=== PATIENT | male | born 1955 | race Caucasian/White ===

== ENCOUNTER 2018-08-09 09:39 | Observation (INO) | payer BC ==
[~2018-08-09] VITALS: Ht 177.8 cm; Wt 65.6 kg
[~2018-08-09 09:39] MED LIST: ALEVE 220MG220 MG PO; RT SPIRIVA18 MCG IH
[2018-08-09 10:06] LABS: BASO # 0.1 (0.0-0.2); BASO % 0.9 % (0.0-2.0); EOS # 0.3 (0.0-0.7); EOS % 3.1 % (0-4.0); GRAN # 5.8 (1.4-6.5); GRAN % 65.8 % (42.2-75.2); HEMATOCRIT 45.6 % (42.0-52.0); HEMOGLOBIN 15.1 g/dl (13.5-18.0); LYMPH # 1.9 (1.2-3.4); MEAN CELL VOLUME 95 fl (80.0-100.0); MEAN CORPUSCULAR HEMOGLOBIN 32 pg (27.0-31.0); MEAN CORPUSCULAR HGB CONC 33 g/dl (33.0-37.0); MEAN PLATELET VOLUME 8.7 fl (7.4-10.4); MONO # 0.7 (0.1-0.6); MONO % 7.7 % (1.7-9.3); PLATELET COUNT 303 K/mm3 (130-400); RED BLOOD COUNT 4.79 M/mm3 (4.20-5.60); REDCELL DISTRIBUTION WIDTH-CV 13.2 % (11.5-14.5)
[2018-08-09 10:13] LABS: INR 1.1 (0.8-3.0); PROTHROMBIN TIME 12.2 SECONDS (9.7-12.8)
[2018-08-09 10:15] LABS: PARTIAL THROMBOPLASTIN TIME 31.8 SECONDS (26.0-37.0)
[2018-08-09 10:17] LABS: ALANINE AMINOTRANSFERASE 21 U/L (21-72); ALBUMIN 4.1 gm/dL (3.5-5.0); ALKALINE PHOSPHATASE 96 U/L (50-136); ANION GAP 9 mmol/L (7-16); AST,SGOT 19 U/L (15-37); BILIRUBIN,TOTAL 0.6 mg/dL (0.0-1.0); BLOOD UREA NITROGEN 15 mg/dL (9-20); CALCIUM 9.3 mg/dL (8.4-10.2); CARBON DIOXIDE 25 mmol/L (22-30); CHLORIDE 102 mmol/L (98-107); CREATININE, serum 0.99 mg/dL (0.66-1.25); GLUCOSE 113 mg/dL (74-106); LIPASE 38 U/L (23-300); POTASSIUM 4.2 mmol/L (3.4-5.0); SODIUM 136 mmol/L (137-145); TOTAL PROTEIN 7.4 gm/dL (6.4-8.2)
[2018-08-09 10:31] LABS: TROPONIN-I < 0.012 ng/mL (0.000-0.034)
[2018-08-09] MEDS ORDERED: PROAIR HFA0.09 MG/AC INH (11:18)
[2018-08-09 12:55] VITALS: BP 100/62; PULSE 72; TEMP 97.3
--- NOTE | 2018-08-09 13:01 | NUR ---
PATIENT ARRIVED TO ROOM 306.RESTING IN BED AND PATIENT ORIENTED TO ROOM.CALL LIGHT IN REACH
[2018-08-09 17:51] VITALS: BP 94/63; PULSE 96; TEMP 98.4
--- NOTE | 2018-08-09 18:21 | NUR ---
PATIENT RESTING IN BED AT THIS TIME.PAIN UNDER CONTROL.ECHO DONE,RESULTS PENDING.IVF INFUSING.PATIENT DENIES ANY CONCERNS AT THIS TIME.CALL LIGHT IN REACH
[2018-08-09 19:03] VITALS: BP 86/53; PULSE 89; TEMP 98.3
--- NOTE | 2018-08-09 19:30 | NUR ---
Patient resting in bed with family at bedside. C/O some pain in lower chest, given NORCO for pain, which helped earlier. Provided pain relief and patient fell asleep. Pain increases when patient is coughing. No further needs at this time.
[2018-08-09 23:49] VITALS: BP 96/53; PULSE 95; TEMP 99.3
[2018-08-10 03:49] VITALS: BP 92/54; PULSE 105; TEMP 99.2
--- NOTE | 2018-08-10 05:17 | NUR ---
Patient slept most of the night, given pain medication at beginning of shift, no further complaints of pain. VSS. No further needs at this time.
[2018-08-10 06:17] LABS: BASO # 0.1 (0.0-0.2); BASO % 1.2 % (0.0-2.0); EOS # 0.2 (0.0-0.7); EOS % 2.2 % (0-4.0); GRAN # 4.6 (1.4-6.5); GRAN % 66.8 % (42.2-75.2); HEMATOCRIT 37.3 % (42.0-52.0); LYMPH # 1.4 (1.2-3.4); LYMPH % 20.8 % (20.0-51.0); MEAN CELL VOLUME 97 fl (80.0-100.0); MEAN CORPUSCULAR HEMOGLOBIN 31 pg (27.0-31.0); MEAN CORPUSCULAR HGB CONC 32 g/dl (33.0-37.0); MEAN PLATELET VOLUME 9.1 fl (7.4-10.4); MONO # 0.6 (0.1-0.6); MONO % 8.7 % (1.7-9.3); PLATELET COUNT 260 K/mm3 (130-400); RED BLOOD COUNT 3.85 M/mm3 (4.20-5.60); REDCELL DISTRIBUTION WIDTH-CV 13.4 % (11.5-14.5)
[2018-08-10 06:34] LABS: CALCIUM 8.2 mg/dL (8.4-10.2); CREATININE, serum 0.87 mg/dL (0.66-1.25)
[2018-08-10 06:51] LABS: HEMOGLOBIN 12.1 g/dl (13.5-18.0)
--- NOTE | 2018-08-10 08:20 | NUR ---
pT restign in bed, denies SOB, no supplementary oxygen applied, vitals stable and WNL, pt denies pain except with very deep breaths but pt reports it is significantly improved. Physical assessment completed, lungs are diminished throughout. IV to Rt chest port s redness,swelling, and this RN obtained easy blood return. No further needs, family at bedside, call light in reach
[2018-08-10 08:30] VITALS: BP 93/62; PULSE 96; TEMP 98.7
--- NOTE | 2018-08-10 10:29 | NUR ---
First visit from the staff occupational therapist. No needs right now.
[2018-08-10 12:35] VITALS: BP 102/82; PULSE 80; TEMP 98.8
[2018-08-10 15:05] LABS: HEMATOCRIT 37.8 % (42.0-52.0); HEMOGLOBIN 12.5 g/dl (13.5-18.0)
--- NOTE | 2018-08-10 15:26 | NUR ---
ESTHELA and SW student met with patient to discuss discharge planning. Patient confirmed that he lives independently with his , 2 cats, and a dog. He recently retired and has his insurance until september then his will put him on hers. Patients PCP is Dr bety Mishra and he obtains his medications at [facility]. Patient does not know if he has a DPOA but was going to talk to his . SW informed him that we could assist him with completing one while he is here if he would like to. SW does not anticipated any discharge needs.
[2018-08-10 16:34] VITALS: BP 99/71; PULSE 96; TEMP 99.4
[2018-08-10 17:07] VITALS: BP 113/60; PULSE 91; TEMP 98.3
--- NOTE | 2018-08-10 19:32 | NUR ---
rEPORT GIVEN TO LYDIA RN, PT DENIES NEEDS
[2018-08-10 20:12] VITALS: BP 114/69; PULSE 104; TEMP 98.3
--- NOTE | 2018-08-10 23:40 | NUR ---
Completed assessment and medication administration for patient; PT denies pain and discomfort. PT A&Ox3, LCA, BS active x4, and IND AMB. CT RL 5mm node; PT pending d/c home 08/11/2018. Port-a-cath accessed to left chest; PT on RA holding O2 sats; PT tolerated medications without complaints. PT denied further needs at time of exit. Placed call light within reach of patient; Will continue to monitor. CDA
--- NOTE | 2018-08-11 02:30 | NUR ---
PT desated to 88% on RA during HS lying flat in bed; raised HOB to 30% and placed O2 via NC at 1.5L; Recheck of O2 sats was 90-91% steady. PT resting without complaints in bed with call light within reach. Will continue to monitor. CDA
[2018-08-11 02:36] VITALS: BP 99/60; PULSE 92
[2018-08-11 06:09] LABS: BASO # 0.1 (0.0-0.2); BASO % 1.1 % (0.0-2.0); EOS # 0.3 (0.0-0.7); GRAN # 4.4 (1.4-6.5); GRAN % 62.5 % (42.2-75.2); HEMATOCRIT 39.6 % (42.0-52.0); LYMPH # 1.8 (1.2-3.4); LYMPH % 25.7 % (20.0-51.0); MEAN CELL VOLUME 97 fl (80.0-100.0); MEAN CORPUSCULAR HEMOGLOBIN 32 pg (27.0-31.0); MEAN CORPUSCULAR HGB CONC 33 g/dl (33.0-37.0); MONO # 0.5 (0.1-0.6); MONO % 6.4 % (1.7-9.3); PLATELET COUNT 283 K/mm3 (130-400); RED BLOOD COUNT 4.09 M/mm3 (4.20-5.60); REDCELL DISTRIBUTION WIDTH-CV 13.6 % (11.5-14.5)
[2018-08-11 06:18] LABS: CALCIUM 9.1 mg/dL (8.4-10.2); CREATININE, serum 0.86 mg/dL (0.66-1.25); POTASSIUM 4.5 mmol/L (3.4-5.0)
--- NOTE | 2018-08-11 07:10 | NUR ---
PT tolerated medications and nightly checks well; PT maintained O2 sats through rest of the night. PT due for possible D/C home. HBG 13.0 - improved from labs on 08/10/2018. No further needs at time of exit; call light placed within reach; Report given to CHANDRA Jamison. CDA
[2018-08-11 07:37] VITALS: BP 110/79; PULSE 80; TEMP 97.6
--- NOTE | 2018-08-11 07:45 | NUR ---
pt is A+Ox3, pleasant, denies pain except with a very deep breath then a small ache occurs in lung. Lungs bilaterally are diminished but improved since yesterday. pt on RA, denies SOB. Physical assessment completed. Hgb continues to increase. pt denies further needs, call light in reach
--- NOTE | 2018-08-11 10:51 | NUR ---
Patient dc home today with .
[2018-08-11 11:33] VITALS: BP 102/67; PULSE 78; TEMP 98
[2018-08-11] MEDS ORDERED: ELIQUIS 5MG PO (11:35)
--- NOTE | 2018-08-11 14:15 | NUR ---
this RN reviewed discharge instructions with pt, answered all questions, script provided. Port deaccessed, site free of redness/swelling. Pt denies needs, tele removed, personal belongings collected and pt awaiting ride
== END 2018-08-11 14:20 | disposition home or self-care (01) ==
LOC: COL.ER 09:39 → MEDICAL 11:20
PROVIDERS: Emergency Medicine; Physician Assistant; ADMIT Hospitalist
DX: R07.89 Other chest pain (principal); R09.02 Hypoxemia; I95.9 Hypotension, unspecified; D64.9 Anemia, unspecified; J44.9 Chronic obstructive pulmonary disease, unspecified; R91.1 Solitary pulmonary nodule; I26.99 Other pulmonary embolism without acute cor pulmonale; F17.210 Nicotine dependence, cigarettes, uncomplicated; I08.1 Rheumatic disorders of both mitral and tricuspid valves; Z85.118 Personal history of other malignant neoplasm of bronchus and lung
CPT/HCPCS: 99239; G0378; J1650; J3010; J7030; Q9967

== ENCOUNTER 2019-01-31 08:19 | Outpatient (RCR) | payer BC ==
[~2019-01-31 08:19] MED LIST changes: +ELIQUIS 5MG PO; +PROAIR HFA0.09 MG/AC INH
== END 2019-03-01 15:08 | disposition home or self-care (01) ==
LOC: MKS.ESL.PT 08:19
DX: Z01.818 Encounter for other preprocedural examination (principal); M25.512 Pain in left shoulder

== ENCOUNTER 2019-05-01 08:15 | Outpatient (RCR) | payer BC | END 2019-05-13 | disposition still patient (30) | LOC: MKS.ESL.PT | DX: M25.512 Pain in left shoulder (principal); Z98.890 Other specified postprocedural states | CPT/HCPCS: G0283-GP ==

== ENCOUNTER → 2019-10-03 | Outpatient (CLI) | payer BC | LOC: COL.RAD 09:58 | DX: G93.89 Other specified disorders of brain (principal); H53.8 Other visual disturbances; H53.2 Diplopia; Z85.118 Personal history of other malignant neoplasm of bronchus and lung | CPT/HCPCS: A9585 ==

== ENCOUNTER 2020-03-03 12:13 | Emergency (ER) | payer BC ==
[~2020-03-03] VITALS: Ht 177.8 cm; Wt 68.2 kg
[2020-03-03 12:19] VITALS: TEMP 99.4
[2020-03-03 13:09] LABS: BASO # 0.1 (0.0-0.2); EOS # 0.1 (0.0-0.7); EOS % 2.7 % (0-4.0); GRAN # 2.5 (1.4-6.5); GRAN % 50.8 % (42.2-75.2); HEMATOCRIT 45.4 % (42.0-52.0); HEMOGLOBIN 15.2 g/dl (13.5-18.0); LYMPH # 1.8 (1.2-3.4); LYMPH % 37.3 % (20.0-51.0); MEAN CELL VOLUME 94 fl (80.0-100.0); MEAN CORPUSCULAR HEMOGLOBIN 32 pg (27.0-31.0); MEAN CORPUSCULAR HGB CONC 34 g/dl (33.0-37.0); MEAN PLATELET VOLUME 9.2 fl (7.4-10.4); MONO # 0.4 (0.1-0.6); MONO % 7.8 % (1.7-9.3); PLATELET COUNT 206 K/mm3 (130-400); RED BLOOD COUNT 4.82 M/mm3 (4.20-5.60); REDCELL DISTRIBUTION WIDTH-CV 12.4 % (11.5-14.5)
[2020-03-03 13:14] LABS: INR 1.1 (0.8-3.0); PROTHROMBIN TIME 12.2 SECONDS (9.7-12.8)
[2020-03-03 13:50] LABS: ALANINE AMINOTRANSFERASE 14 U/L (4-49); ALBUMIN 4.2 gm/dL (3.5-5.0); ALKALINE PHOSPHATASE 95 U/L (50-136); ANION GAP 5 mmol/L (7-16); AST,SGOT 21 U/L (15-37); BILIRUBIN,TOTAL 0.4 mg/dL (0.0-1.0); BLOOD UREA NITROGEN 16 mg/dL (9-20); CALCIUM 9.2 mg/dL (8.4-10.2); CARBON DIOXIDE 27 mmol/L (22-30); CHLORIDE 103 mmol/L (98-107); CREATININE, serum 1.08 (0.66-1.25); GLUCOSE 97 mg/dL (74-106); POTASSIUM 4.3 mmol/L (3.4-5.0); SODIUM 135 mmol/L (137-145); TOTAL PROTEIN 7.3 gm/dL (6.4-8.2)
[2020-03-03 14:12] LABS: TROPONIN-I < 0.012 ng/mL (0.000-0.035)
[2020-03-03] MEDS ORDERED: NIZORAL CREAM15 GM TP (15:09)
[2020-03-03] MEDS ORDERED: SYNTHROID0.05 MG/TA PO (15:10)
[2020-03-03] MEDS ORDERED: ALEVE 220MG220 MG PO (15:10)
[2020-03-03] MEDS ORDERED: TRENTAL 400MG400 MG PO (15:11)
[2020-03-03] MEDS ORDERED: TRELEGY ELLIPT1 EACH IH (15:11)
[2020-03-03 15:22] VITALS: BP 100/76; PULSE 55
== END 2020-03-03 15:35 | disposition short-term general hospital (02) ==
LOC: COL.ER 12:13
PROVIDERS: Emergency Medicine
DX: R53.1 Weakness (principal); R27.0 Ataxia, unspecified; Z79.890 Hormone replacement therapy; Z79.51 Long term (current) use of inhaled steroids; Z85.118 Personal history of other malignant neoplasm of bronchus and lung

== ENCOUNTER 2020-04-25 20:00 | Emergency (ER) | payer BC ==
[~2020-04-25] VITALS: Ht 177.8 cm; Wt 67.3 kg
[~2020-04-25 20:00] MED LIST changes: +NIZORAL CREAM15 GM TP; +SYNTHROID0.05 MG/TA PO; +TRELEGY ELLIPT1 EACH IH; +TRENTAL 400MG400 MG PO
[2020-04-25] MEDS ORDERED: DECADRON 4MG TAB4 MG PO (20:39)
[2020-04-25] MEDS ORDERED: DIFLUCAN 100MG100 MG PO (21:39)
[2020-04-25 22:59] VITALS: BP 98/67; PULSE 87; TEMP 97.5
== END 2020-04-25 23:00 | disposition home or self-care (01) ==
LOC: COL.ER 20:00
DX: T18.128A Food in esophagus causing other injury, initial encounter (principal); F17.210 Nicotine dependence, cigarettes, uncomplicated; Z85.118 Personal history of other malignant neoplasm of bronchus and lung
CPT/HCPCS: J2250; J2405; J2704; J3010; J7030

== ENCOUNTER 2020-06-20 11:30 | Outpatient (RCR) | payer BC ==
[~2020-06-20 11:30] MED LIST changes: +DECADRON 4MG TAB4 MG PO; +DIFLUCAN 100MG100 MG PO
== END 2020-06-23 | disposition home or self-care (01) ==
LOC: MKS.ESL.PT
DX: C79.31 Secondary malignant neoplasm of brain (principal); G93.6 Cerebral edema; G93.5 Compression of brain

== ENCOUNTER 2020-07-15 10:30 | Outpatient (RCR) | payer BC | END 2020-07-21 | disposition home or self-care (01) | LOC: MKS.ESL.PT | DX: C79.31 Secondary malignant neoplasm of brain (principal) ==

== ENCOUNTER → 2020-08-13 | Outpatient (CLI) | payer BC | LOC: COL.RAD 07:30 | DX: C34.90 Malignant neoplasm of unspecified part of unspecified bronchus or lung (principal); I67.89 Other cerebrovascular disease; Z98.890 Other specified postprocedural states | CPT/HCPCS: A9585 ==

== ENCOUNTER 2020-09-12 10:30 | Outpatient (RCR) | payer BC ==
[2020-09-17] MEDS ORDERED: TYLENOL 325MG325 MG PO (21:50)
[2020-09-17] MEDS ORDERED: ELIQUIS 5MG PO (21:51)
[2020-09-17] MEDS ORDERED: LEXAPRO 5MG5 MG PO (21:51)
[2020-09-17] MEDS ORDERED: TYLENOL W/COD1 UDTAB PO (21:51)
[2020-09-17] MEDS ORDERED: TRELEGY ELLIPT1 EACH IH (21:52)
[2020-09-17] MEDS ORDERED: PROTONIX 40MG T40 MG PO (21:52)
[2020-09-17] MEDS ORDERED: VITAMIN E 400 U4001 PO (21:53)
[2020-09-23] MEDS ORDERED: NORCO 325 MG-7.1 TAB PO (11:04)
[2020-09-23] MEDS ORDERED: SENNA-S 50 MG-81 TAB PO (11:06)
[2020-09-23] MEDS ORDERED: DECADRON6 MG PO (15:17)
[2020-10-18] MEDS ORDERED: RT Anoro Ellipta IH (12:16)
[2020-10-18] MEDS ORDERED: ZOLOFT 100MG100 MG PO (12:17)
[2020-10-21] MEDS ORDERED: NORCO 325 MG-7.1 TAB PO (11:44)
[2020-10-21] MEDS ORDERED: FENTANYL 12MCG TD (11:45)
== END 2020-10-20 | disposition home or self-care (01) ==
LOC: MKS.ESL.OT
DX: C79.31 Secondary malignant neoplasm of brain (principal); R26.0 Ataxic gait; G93.6 Cerebral edema; G93.5 Compression of brain

== ENCOUNTER 2020-09-17 19:47 | Inpatient (IN) | payer BC ==
[~2020-09-17] VITALS: Ht 170.2 cm; Wt 66.2 kg
[2020-09-17 20:17] LABS: HEMATOCRIT 40.7 % (42.0-52.0); HEMOGLOBIN 13.6 g/dl (13.5-18.0); MEAN CELL VOLUME 97 fl (80.0-100.0); MEAN CORPUSCULAR HEMOGLOBIN 33 pg (27.0-31.0); MEAN CORPUSCULAR HGB CONC 33 g/dl (33.0-37.0); MEAN PLATELET VOLUME 9.1 fl (7.4-10.4); PLATELET COUNT 269 K/mm3 (130-400); RED BLOOD COUNT 4.19 M/mm3 (4.20-5.60); REDCELL DISTRIBUTION WIDTH-CV 13.1 % (11.5-14.5)
[2020-09-17 20:22] LABS: INR 1.5 (0.8-3.0); PROTHROMBIN TIME 17.3 SECONDS (9.7-12.8)
[2020-09-17 20:24] LABS: PARTIAL THROMBOPLASTIN TIME 35.8 SECONDS (26.0-37.0)
[2020-09-17 20:25] LABS: ALBUMIN 3.1 gm/dL (3.5-5.0); BILIRUBIN,TOTAL 0.4 mg/dL (0.0-1.0); CALCIUM 8.5 mg/dL (8.4-10.2); CREATININE, serum 0.74 (0.66-1.25); POTASSIUM 4.5 mmol/L (3.4-5.0)
[2020-09-17 21:31] LABS: BAND 3 % (0-10); LYMPHOCYTE 22 % (20.0-51.0); NEUTROPHILS 72 % (42.0-75.2)
[2020-09-17 21:32] LABS: PLATELET ESTIMATE NORMAL (NORMAL)
[2020-09-17] MEDS ORDERED: TYLENOL 325MG325 MG PO (21:50)
[2020-09-17] MEDS ORDERED: TYLENOL W/COD1 UDTAB PO (21:51)
[2020-09-17] MEDS ORDERED: ELIQUIS 5MG PO (21:51)
[2020-09-17] MEDS ORDERED: LEXAPRO 5MG5 MG PO (21:51)
[2020-09-17] MEDS ORDERED: TRELEGY ELLIPT1 EACH IH (21:52)
[2020-09-17] MEDS ORDERED: PROTONIX 40MG T40 MG PO (21:52)
[2020-09-17] MEDS ORDERED: VITAMIN E 400 U4001 PO (21:53)
[2020-09-17 22:36] LABS: COLLECTION METHOD CLEAN CATCH
[2020-09-17 22:42] LABS: MUCOUS Present /lpf; PH 6 (5-8); SQUAMOUS EPITHELIAL None Seen /hpf; URINE APPEARANCE Clear; URINE BACTERIA None Seen /hpf; URINE BILIRUBIN Negative (NEGATIVE); URINE BLOOD Negative (NEGATIVE); URINE COLOR Yellow; URINE GLUCOSE Negative (NEGATIVE); URINE KETONE Trace (NEGATIVE); URINE LEUKOCYTE ESTERASE Negative (NEGATIVE); URINE NITRATE Negative (NEGATIVE); URINE PROTEIN(semi-quant) Negative (NEGATIVE); URINE RBC 0-2 /hpf; URINE UROBILINOGEN Negative (NEGATIVE); URINE WBC 0-2 /hpf
[2020-09-17 23:19] LABS: PRE ALBUMIN 13.7 mg/dL (17.6-36.0)
[2020-09-17 23:44] LABS: TSH w REFLEX 3.65 uIU/mL (0.465-4.680)
[2020-09-18] VITALS (541 sets, daily range): BP systolic 98–155; BP diastolic 63–103; PULSE 66–103; TEMP 96.4–98.3; O2SAT 88–98
--- NOTE | 2020-09-18 00:45 | NUR ---
Patient arrived to unit via stretcher from ED at 0015. Patient transferred from stretcher to bed. NS running at 60mls/hr into a 20g in the LFA. Patient A&O x4 with delayed responses d/t brain tumor. VSS - 97.5*F 71hr 95% O2 on 2L via NC 11rr 116/82bp. Patient stated 0/10 when asked about pain. Patient pleasant and cooperative. Nurse reviewed visitor policy, patient plan of care and oriented patient to room. Patient tested for Covid and received positive diagnosis on 09/17/20. Patient has pajama pants and top, slippers, upper denture plate, hearing aides, cell phone web site manager and home medications in bottles stored in closet of patient room. Patient refused belongings to be sent to security. Nurse will resume care of patient at this time.
[2020-09-18 04:32] LABS: ARTERIAL BLD GAS O2 SATURATION 94.2 % (92-100); ARTERIAL BLD GAS TCO2 CT 22.7; ARTERIAL BLOOD GAS BASE EXCESS -4.7 (-2-2); ARTERIAL BLOOD GAS HCO3 21.4 meq/L (22-26); ARTERIAL BLOOD GAS PCO2 43.1 mmHg (35-45); ARTERIAL BLOOD GAS PO2 77.9 mmHg (80-100); ARTERIAL BLOOD GAS pH 7.31 (7.35-7.45)
[2020-09-18 05:15] LABS: HEMATOCRIT 39.9 % (42.0-52.0); HEMOGLOBIN 13.3 g/dl (13.5-18.0); MEAN CELL VOLUME 96 fl (80.0-100.0); MEAN CORPUSCULAR HEMOGLOBIN 32 pg (27.0-31.0); MEAN CORPUSCULAR HGB CONC 33 g/dl (33.0-37.0); MEAN PLATELET VOLUME 8.9 fl (7.4-10.4); PLATELET COUNT 262 K/mm3 (130-400); RED BLOOD COUNT 4.17 M/mm3 (4.20-5.60); REDCELL DISTRIBUTION WIDTH-CV 13.1 % (11.5-14.5)
[2020-09-18 05:26] LABS: ALBUMIN 3.2 gm/dL (3.5-5.0); BILIRUBIN,TOTAL 0.3 mg/dL (0.0-1.0); CALCIUM 8.3 mg/dL (8.4-10.2); CREATININE, serum 0.61 (0.66-1.25); POTASSIUM 4.9 mmol/L (3.4-5.0)
[2020-09-18 05:46] LABS: BAND 1 % (0-10); BASOPHIL 1 % (0-2); LYMPHOCYTE 24 % (20.0-51.0); NEUTROPHILS 71 % (42.0-75.2); NUCLEATED RED BLOOD CELL 1 (0-6); PLATELET ESTIMATE NORMAL (NORMAL)
--- NOTE | 2020-09-18 10:38 | NUR ---
PTs states PT last took Eliquis on 09/17/2020 at noon.
--- NOTE | 2020-09-18 17:57 | NUR ---
Report given to CHANDRA Syed on medical floor for patient transfer.
--- NOTE | 2020-09-18 18:26 | NUR ---
PT moved to room 304 via stretcher. CHANDRA Syed assumes care at this time. Care relinquished at this time.
--- NOTE | 2020-09-18 18:43 | NUR ---
Patient transferred up to the floor at this time. He has been made comfortable in the room with TV and phone. IV fluids have been restarted, SCDs in place. Pillow was placed under knees and pt stated that this helped with his pain. Patient was feeling nauseous and states that laying down makes it worse so patient is sitting up. Report to be given to shiftman. no other needs at th time. Call light is inr each.
--- NOTE | 2020-09-18 20:40 | NUR ---
PATIENT SITTING IN BED WATCHING TELEVISION AT THIS TIME. NO REQUESTS OR CONCERNS VERBALIZED BY PATIENT AT THIS TIME.
[2020-09-19 04:04] VITALS: BP 136/84; PULSE 79; TEMP 97.4
[2020-09-19 07:23] LABS: BASO % 0.3 % (0.0-2.0); GRAN % 71.3 % (42.2-75.2); HEMATOCRIT 39.4 % (42.0-52.0); HEMOGLOBIN 12.6 g/dl (13.5-18.0); LYMPH # 1.5 (1.2-3.4); LYMPH % 20.8 % (20.0-51.0); MEAN CELL VOLUME 100 fl (80.0-100.0); MEAN CORPUSCULAR HEMOGLOBIN 32 pg (27.0-31.0); MEAN CORPUSCULAR HGB CONC 32 g/dl (33.0-37.0); MEAN PLATELET VOLUME 8.9 fl (7.4-10.4); MONO # 0.5 (0.1-0.6); PLATELET COUNT 299 K/mm3 (130-400); RED BLOOD COUNT 3.96 M/mm3 (4.20-5.60); REDCELL DISTRIBUTION WIDTH-CV 13.2 % (11.5-14.5)
[2020-09-19 07:41] LABS: CALCIUM 8.4 mg/dL (8.4-10.2); CREATININE, serum 0.6 (0.66-1.25); POTASSIUM 4.4 mmol/L (3.4-5.0)
--- NOTE | 2020-09-19 08:00 | NUR ---
(late entry) Patient sitting up in bed alert and oriented x3 with delayed speach. Fluids infusing per orders to RAC IV. Pedal pulses intact. SCDS to BLE. RLE appears shortened and externally rotated. Patient denies pain at this time. Patient able to reposition without much discomfort. Ferraro to DD with clear yellow urine present. No further needs at this time.
--- NOTE | 2020-09-19 08:34 | NUR ---
(late entry 09/18) Roll Changer contacted the patient's , Alejandra to complete intake. The patient lives in [place] with Alejandra. The patient has a cane and a walker. He receives some assistance from lAejandra for ADLs. The patient's PCP is Dr. Mishra and patient receives medications from [facility] pharmacy. The patient has advanced directives and Alejandra is to send a copy to place in chart. Awaiting paperwork. Alejandra reports the patient has been getting outpatient PT in [place] for his hand. ESTHELA discussed that the patient may be needing post acute rehab. She was agreeable to sending referral to [facility]. ESTHELA contacted Susan with [facility] regarding referral. She will have her team review referral. ESTHELA also consulted Tanya, IPR Director for an IPR referral. Awaiting responses.
[2020-09-19 09:16] VITALS: BP 140/86; PULSE 88; TEMP 100
--- NOTE | 2020-09-19 11:00 | NUR ---
Patient sitting up in bed, states mild discomfort to right hip 10/25. Medication was given per orders. No further needs at this time.
[2020-09-19 12:44] VITALS: BP 123/83; PULSE 78; TEMP 97.7
--- NOTE | 2020-09-19 14:59 | NUR ---
Dr. Marrero in to see patient.
[2020-09-19 17:00] VITALS: BP 131/76; PULSE 77; TEMP 97.8
--- NOTE | 2020-09-19 17:53 | NUR ---
Patient doing well throughout the day, Repositioned throughout the day. SCDS to BLE. Ferraro maintained to DD. Patient denies pain at this time. Patient occassinally confused throughout the day/forgetful. Family brought in laptop and cellphone for patient use. Continues to deny pain to right hip throughout the day. Denies further needs at this time. Will report off to maintenance technician 3rd shift.
[2020-09-19 20:27] VITALS: BP 126/87; PULSE 85; TEMP 97.8
[2020-09-20] VITALS (13 sets, daily range): BP systolic 100–141; BP diastolic 74–93; PULSE 63–107; TEMP 97.4–98.5
[2020-09-20 08:19] LABS: BASO % 0.3 % (0.0-2.0); EOS % 0.2 % (0-4.0); GRAN # 4.3 (1.4-6.5); GRAN % 66.1 % (42.2-75.2); HEMOGLOBIN 11.4 g/dl (13.5-18.0); LYMPH # 1.7 (1.2-3.4); LYMPH % 25.3 % (20.0-51.0); MEAN CELL VOLUME 97 fl (80.0-100.0); MEAN CORPUSCULAR HEMOGLOBIN 33 pg (27.0-31.0); MEAN CORPUSCULAR HGB CONC 34 g/dl (33.0-37.0); MEAN PLATELET VOLUME 9.1 fl (7.4-10.4); MONO # 0.5 (0.1-0.6); MONO % 7.2 % (1.7-9.3); PLATELET COUNT 276 K/mm3 (130-400); RED BLOOD COUNT 3.49 M/mm3 (4.20-5.60); REDCELL DISTRIBUTION WIDTH-CV 13.4 % (11.5-14.5)
[2020-09-20 08:21] LABS: CALCIUM 8.1 mg/dL (8.4-10.2); CREATININE, serum 0.53 (0.66-1.25); POTASSIUM 3.7 mmol/L (3.4-5.0)
[2020-09-20 08:22] LABS: INR 1.3 (0.8-3.0)
[2020-09-20 08:25] LABS: HEMATOCRIT 33.8 % (42.0-52.0)
--- NOTE | 2020-09-20 09:00 | NUR ---
Patient laying in bed, complaints of wanting to eat and drink water. Patient NPO for a procedure. A&Ox3. VSS 1L NC O2, no reported SOB. IV CDI fluids infusing. Denies pain and discomfort. Contact/droplet precautions in place. No further needs expressed from the patient. Call light within reach. Bed alarm on
--- NOTE | 2020-09-20 13:02 | NUR ---
Patient transfered by the bed to the OR. Covid precautions in place, patient wearing mask.
--- NOTE | 2020-09-20 14:45 | NUR ---
Patient to room 304 from the OR. Patient A&O. VSS 2L NC O2 . IV CDI, fluids infusing. CMS WNL. Denies pain and discomfort. Right thigh incision sitesx2 CDI, ice applied. SCD left leg. Call light within reach. Bed alarm on. VS monitored post op. Contract/droplet precautions in place
--- NOTE | 2020-09-20 17:32 | NUR ---
Patient awake and stating that he still feels tired and wants to go back to bed. Nurse set up face time with patients family on the patients laptop. Patient A&Ox3. VSS 2L NC O2, no reported SOB. IV CDI, fluids infusing. Denies pain and discomfort. CMS WNL. Droplet/contact precautions in place. No further needs expressed from the patient. Call light within reach. Bed alarm on
--- NOTE | 2020-09-20 19:18 | NUR ---
Report recieved, patient is stable, bedrest continues, recieved spinal block in OR- on precautions, torres draining per gravity w/o issue, O2@2L per NC SPO2 96%, no cough noted, ice to surgical site, denies pain, telemetry in use.
--- NOTE | 2020-09-20 22:09 | NUR ---
resting comfortably in bed, addressed requests, bedrest continues, took pm medications w/o difficulty, respirations even and unlabored, skin warm and dry, L sided weakness @baseline, torres to gravity w/o issue, VS stable
--- NOTE | 2020-09-21 00:04 | NUR ---
patient c/o L Leg pain- states it's his usual pain, pedal pulse +2 bilaterally, no edema, no redness noted. PRN [place] given as ordered, will continue to monitor.
[2020-09-21 05:06] VITALS: BP 122/81; PULSE 69; TEMP 98.1
--- NOTE | 2020-09-21 06:30 | NUR ---
PT RESTING IN BED AT THIS TIME. WILL MONITOR CLOSELY FOR GETTING UP AT BEDSIDE AFTER PT ASSESSES.
[2020-09-21 07:25] LABS: HEMOGLOBIN 10.4 g/dl (13.5-18.0); MEAN CELL VOLUME 95 fl (80.0-100.0); MEAN CORPUSCULAR HEMOGLOBIN 32 pg (27.0-31.0); MEAN CORPUSCULAR HGB CONC 33 g/dl (33.0-37.0); PLATELET COUNT 295 K/mm3 (130-400); RED BLOOD COUNT 3.27 M/mm3 (4.20-5.60); REDCELL DISTRIBUTION WIDTH-CV 13.4 % (11.5-14.5)
[2020-09-21 07:28] LABS: HEMATOCRIT 31.2 % (42.0-52.0)
[2020-09-21 07:42] LABS: CALCIUM 8.3 mg/dL (8.4-10.2); CREATININE, serum 0.54 (0.66-1.25); POTASSIUM 3.9 mmol/L (3.4-5.0)
[2020-09-21 08:26] VITALS: BP 107/72; PULSE 61; TEMP 97.7
[2020-09-21 10:12] LABS: BAND 7 % (0-10); LYMPHOCYTE 14 % (20.0-51.0); NEUTROPHILS 71 % (42.0-75.2); PLATELET ESTIMATE NORMAL (NORMAL)
[2020-09-21 12:27] VITALS: BP 92/71; PULSE 62; TEMP 97.3
[2020-09-21 15:34] VITALS: BP 111/70; PULSE 96; TEMP 97.9
--- NOTE | 2020-09-21 18:10 | NUR ---
PT HAD UNEVENTFUL DAY. PT WORKED AT BEDSIDE, AND PT WAS ABLE TO STAND AND WALK SOME. THERE HAVE BEEN NO OTHER CONCERNS FOR TODAY. CALL LIGHT WITHIN REACH, AND BED ALARMS ON.
--- NOTE | 2020-09-21 20:21 | NUR ---
Patient awake, alert, oriented x3 , word finding difficulty- baseline for patient, able to make needs known, SPO2 87% on 1L - increased to 3L to maintain 92% - notified RT- will come to see patient, c/o pain to BLE - prn [place] given as ordered. Will continue to monitor.
[2020-09-21 20:25] VITALS: BP 124/83; PULSE 102; TEMP 97.3
--- NOTE | 2020-09-21 23:13 | NUR ---
Resting quietly at this time, conitnue to monitor, O2@3L per NC, respirations even and unlabored, no c/o at this time, torres draining per gravity w/o issue.
[2020-09-22 00:02] VITALS: BP 129/83; PULSE 63; TEMP 98
[2020-09-22 04:32] VITALS: BP 140/97; PULSE 76; TEMP 97.4
[2020-09-22 06:52] LABS: HEMOGLOBIN 10.3 g/dl (13.5-18.0); MEAN CELL VOLUME 97 fl (80.0-100.0); MEAN CORPUSCULAR HEMOGLOBIN 32 pg (27.0-31.0); MEAN CORPUSCULAR HGB CONC 33 g/dl (33.0-37.0); MEAN PLATELET VOLUME 9.3 fl (7.4-10.4); PLATELET COUNT 313 K/mm3 (130-400); RED BLOOD COUNT 3.18 M/mm3 (4.20-5.60); REDCELL DISTRIBUTION WIDTH-CV 13.4 % (11.5-14.5)
[2020-09-22 07:09] LABS: HEMATOCRIT 30.9 % (42.0-52.0)
[2020-09-22 07:22] VITALS: BP 125/74; PULSE 67; TEMP 97.8
[2020-09-22 08:03] LABS: CALCIUM 8.4 mg/dL (8.4-10.2); CREATININE, serum 0.51 (0.66-1.25); POTASSIUM 3.7 mmol/L (3.4-5.0)
[2020-09-22 09:42] LABS: BAND 5 % (0-10); EOSINOPHIL 2 % (0-4); NEUTROPHILS 71 % (42.0-75.2); PLATELET ESTIMATE NORMAL (NORMAL)
[2020-09-22 09:46] LABS: LYMPHOCYTE 12 % (20.0-51.0)
--- NOTE | 2020-09-22 10:00 | NUR ---
SPOKE WITH PT'S DAUGHTER THIS MORNING. REQUESTING TO SPEAK WITH PT ADVOCATE. NOTIFIED NELSY, MEDICAL CHILD CARE GIVER AND STATES SHE WILL CALL DAUGHTER. CONTACT INFORMATION GIVEN.
[2020-09-22 12:28] VITALS: BP 113/65; PULSE 67; TEMP 98
--- NOTE | 2020-09-22 15:42 | NUR ---
ESTHELA received the patient's DPOA-HC. ESTHELA placed the document in the patient's chart. The patient's DPOA-HC is his . The hospitalist notified ESTHELA that the patient should be able to d/c tomorrow, 09/23. ESTHELA notified IPR Director, Tanya. Tanya has submitted for auth. ESTHELA contacted and updated the patient's , Alejandra. Alejandra is agreeable to IPR.
--- NOTE | 2020-09-22 16:02 | NUR ---
RECEIVED CALL FROM FOREST SCIENTIST REPORTING PT'S HR IN 140S. PHYSICAL THERAPY AT BEDSIDE WITH PATIENT. PT HR 130S PALPATION, BP 124/75. HR DECREASING AFTER PHYSICAL THERAPY COMPLETED TO 105.
[2020-09-22 17:10] VITALS: BP 118/88; PULSE 90; TEMP 97.4
--- NOTE | 2020-09-22 19:00 | NUR ---
Awake, alert, oriented x 3, verbal with clear speech, patient seems withdrawn and non talkative this afternoon, denies pain at this time, torres draining per gravity w/o issue, dressing to L hip c/d/i, VS stable, O2@2L per NC in use, respositioned for offloading pressure areas, patient states that he just wants to sleep. Will continue to monitor.
[2020-09-22 20:23] VITALS: BP 136/80; PULSE 78; TEMP 97.9
[2020-09-23 00:32] VITALS: BP 124/62; PULSE 68; TEMP 98.3
[2020-09-23 04:42] VITALS: BP 107/63; PULSE 85; TEMP 98.4
--- NOTE | 2020-09-23 06:10 | NUR ---
Resting comfortably, medicated for pain per orders w/o adverse reactions, telemetry in use SR 70s, off loaded pressure areas, encouraging po fluid intake, will continue to monitor.
[2020-09-23 07:20] LABS: HEMOGLOBIN 10.9 g/dl (13.5-18.0); MEAN CELL VOLUME 100 fl (80.0-100.0); MEAN CORPUSCULAR HEMOGLOBIN 32 pg (27.0-31.0); MEAN CORPUSCULAR HGB CONC 32 g/dl (33.0-37.0); MEAN PLATELET VOLUME 9.2 fl (7.4-10.4); PLATELET COUNT 333 K/mm3 (130-400); RED BLOOD COUNT 3.38 M/mm3 (4.20-5.60); REDCELL DISTRIBUTION WIDTH-CV 13.7 % (11.5-14.5)
[2020-09-23 07:22] LABS: HEMATOCRIT 33.8 % (42.0-52.0)
[2020-09-23 07:34] LABS: CALCIUM 8.5 mg/dL (8.4-10.2); CREATININE, serum 0.64 (0.66-1.25); POTASSIUM 3.3 mmol/L (3.4-5.0)
[2020-09-23 07:56] LABS: BAND 3 % (0-10); HYPOCHROMIA 1+; LYMPHOCYTE 19 % (20.0-51.0); METAMYELOCYTE 2 % (0-0); NEUTROPHILS 72 % (42.0-75.2); NUCLEATED RED BLOOD CELL 1 (0-6); PLATELET ESTIMATE NORMAL (NORMAL)
[2020-09-23 07:57] LABS: ANISOCYTOSIS 1+
[2020-09-23 08:03] VITALS: BP 123/74; PULSE 80; TEMP 97.6
--- NOTE | 2020-09-23 08:20 | NUR ---
PT NOT REPORTING HAVING A BM SINCE HE ARRIVED, WILL MENTION TO PHYSICIAN, WHEN I WENT BACK IN TO GIVE MORPHINE HE STATED CHEST PAIN HAD RESOLVED, VITALS STABLE, EKG PERFORMED.
--- NOTE | 2020-09-23 08:41 | NUR ---
PT C/O CHEST PAIN, UNABLE TO DESCRIBE WHAT IT FELT LIKE, PT GROANING AND SAYING "I WISH I COULD TALK". DR. ANDERSON NOTIFIED AND STAT EKG ORDERED AND OTHER LABS PLACED. RT NOTIFIED FOR STAT EKG. WILL GET MORPHINE FOR PT.
[2020-09-23 08:52] VITALS: BP 109/71; PULSE 91
--- NOTE | 2020-09-23 10:54 | NUR ---
Tanya, IPR Director, reports that she received auth from the patient's insurance and they are able to accept the patient today. SW contacted and updated the patient's , Alejandra. The patient is to discharge today, 09/23, to [facility]. No additional needs at this time.
[2020-09-23] MEDS ORDERED: NORCO 325 MG-7.1 TAB PO (11:04)
[2020-09-23] MEDS ORDERED: SENNA-S 50 MG-81 TAB PO (11:06)
[2020-09-23 12:05] VITALS: BP 126/85; PULSE 105; TEMP 98.5
[2020-09-23] MEDS ORDERED: DECADRON6 MG PO (15:17)
[2020-09-23 16:45] VITALS: BP 126/79; PULSE 88; TEMP 97.8
== END 2020-09-23 17:44 | DRG 480 ==
LOC: COL.ER 19:47 → ICU 22:47 → PEDS 22:47
PROVIDERS: Emergency Medicine; Hospitalist; Nurse Practitioner Family; Orthopaedic Surgery; Registered Nurse; Student in an Organized Health Care Education/Training Program; ADMIT Internal Medicine
PROC: BW1C1ZZ Fluoroscopy of Lower Extremity using Low Osmolar Contrast (ICD-10-PCS; 2020-09-20)
PROC: 0QS606Z Reposition Right Upper Femur with Intramedullary Internal Fixation Device, Open Approach (ICD-10-PCS; principal; 2020-09-20 12:30)
DX: S72.141A Displaced intertrochanteric fracture of right femur, initial encounter for closed fracture (principal); J96.01 Acute respiratory failure with hypoxia; U07.1 COVID-19; E87.1 Hypo-osmolality and hyponatremia; E03.9 Hypothyroidism, unspecified; D49.6 Neoplasm of unspecified behavior of brain; J43.9 Emphysema, unspecified; T30.0 Burn of unspecified body region, unspecified degree; Z66 Do not resuscitate; I95.9 Hypotension, unspecified; K59.00 Constipation, unspecified; K21.9 Gastro-esophageal reflux disease without esophagitis; K22.2 Esophageal obstruction; I73.9 Peripheral vascular disease, unspecified; H91.90 Unspecified hearing loss, unspecified ear; W18.30XA Fall on same level, unspecified, initial encounter; Y92.008 Other place in unspecified non-institutional (private) residence as the place of occurrence of the external cause; Z79.01 Long term (current) use of anticoagulants; Z85.118 Personal history of other malignant neoplasm of bronchus and lung; Z86.711 Personal history of pulmonary embolism; Z92.21 Personal history of antineoplastic chemotherapy; Z92.3 Personal history of irradiation; Z87.891 Personal history of nicotine dependence
CPT/HCPCS: 99223-AI; 99232-AI; 99239; C1713; C1769; J0690; J0696; J1100; J1170; J1650; J2270; J2550; J2704; J2795; J3010; J7030; J8540

== ENCOUNTER 2020-09-23 12:13 | Inpatient (IN) | payer BC ==
[~2020-09-23] VITALS: Ht 170.2 cm; Wt 59.8 kg
[~2020-09-23 12:13] MED LIST changes: +LEXAPRO 5MG5 MG PO; +NORCO 325 MG-7.1 TAB PO; +PROTONIX 40MG T40 MG PO; +SENNA-S 50 MG-81 TAB PO; +TYLENOL 325MG325 MG PO; +TYLENOL W/COD1 UDTAB PO; +VITAMIN E 400 U4001 PO
[2020-09-23] MEDS ORDERED: DECADRON6 MG PO (15:17)
--- NOTE | 2020-09-23 18:05 | NUR ---
PT TRANSFERRED TO IPR STATUS, PT ALERT TO PERSON AND PLACE BUT HAS A HARD TIME FINDING WORDS TO DESCRIBE HIS PAIN, SEEMS TO HAVE INC PAIN WHEN SITTING UP, PT GROANS BUT PAIN IS RELIEVED LAYING FLAT. PAIN MEDICATIONS GIVEN X2, VITALS STABLE. NO OTHER NEEDS
[2020-09-24 04:46] VITALS: BP 104/72; PULSE 83; TEMP 97.7
--- NOTE | 2020-09-24 06:22 | NUR ---
PRN PAIN MEDICATION ADMINISTERED X'2 THROUGHOUT THIS SHIFT. WASHED PATIENTS HAIR AND GAVE HIM A BED BATH AT 2200 LAST NIGHT. NO NEW ISSUES NOTED OR REPORTED BY PATIENT.
--- NOTE | 2020-09-24 07:50 | NUR ---
PT APPEARED DEPRESSED, WHEN ASKED HOW HE WAS DOING PT REPORTED "YOU DON'T WANT TO KNOW". EDUCATED HIM ON THERAPY SCHEDULE FOR THE DAY. HE SEEMED HESITANT ABOUT WORKING WITH PHYSICAL THERAPY, TRIED TO OFFER SUPPORT TO HIM BY EXPLAINING THERAPY WOULD HELP HIM GET HOME TO HIS FAMILY.
--- NOTE | 2020-09-24 10:40 | NUR ---
updated Liz pt REYNA on pt situation. updated Irina on pt inc anxiety and depression.
--- NOTE | 2020-09-24 13:03 | NUR ---
DANIELITO PT CALLED SAYING PT NEEDED SUCTION, WENT OVER TO ROOM, PT SAID HE "COULDN'T BREATH" PT SATTING 92% ON 3L, RT CALLED FOR PRN INHALER PT WAS MIMING ACTION OF USING INHALER. RT CALLED FOR THIS, UPON GOING BACK INTO THE ROOM PT WAS ASLEEP COMFORTABLY, NO DISTRESS NOTED.
--- NOTE | 2020-09-24 15:59 | NUR ---
Power Plant Electrician contacted patient's , Alejandra (ph#[phone]) to complete initial intake as patient is still in COVID isolation. Patient is new to [facility]. Patient lives in [place] with his and sees Dr. Mishra for primary care. [facility] with no difficulties. Alejandra advised patient has a cane and walker at home. During patient's acute stay, Alejandra provided copy of patient's DPOA-HC which designates her as DPOA-HC. Alejandra advised she was very concerned about patient as he has made comments about how much pain he is in and that he fears he is going to soon. Alejandra inquired if patient could see Psychiatry while here. After team conference, ESTHELA contacted Alejandra to provide update. ESTHELA advised that both a psych consult and palliative consult will be placed for patient. ESTHELA also talked with Alejandra about planning for if patient cannot return home safely from [facility]. Alejandra states she will start thinking about this. ESTHELA left a messsage for Karina, Palliative RN and will continue to follow.
[2020-09-24 16:21] VITALS: BP 120/64; PULSE 97; TEMP 97.5
--- NOTE | 2020-09-24 16:49 | NUR ---
tech went in to do vitals, pt had taken oxygen off and was satting 88% on RA. camera placed in room to monitor pt. pt appeared comfortable in bed had no grimacing or groaning.
--- NOTE | 2020-09-24 18:01 | NUR ---
PT IN BED, PT HAS CAMERA IN ROOM MONITORING PT, OXYGEN ON PT, FAMILY UPDATED TODAY, NO OTHER NEEDS
[2020-09-25 05:49] VITALS: BP 98/72; PULSE 116; TEMP 98
--- NOTE | 2020-09-25 06:45 | NUR ---
PT IS CURRENTLY IN THE ROOM MOANING AND GROANING. HE IS ALERT AND ORIENTED, HOWEVER HAS SOME CLEAR HOSPITAL DELERIUM GOING ON. HE IS ANXIOUS TO GET OUT OF THE HOSPTIAL. NOT COMPLAINING OF PAIN. PER REPORT, FAMILY IS CONSIDERING PALLIATIVE CARE. THIS RN LOOKED EXTENSIVELY THROUGH THE PATIENTS ROOM, AND COULD NOT FIND THE CUP THAT CONTAINS THE PATIENT'S DENTURE/SOFT PALATE NOR HIS CUPS CONTAINING BILATERAL HEARING AIDS. HAVE NOTIFIED CHARGE NURSE, AND CASSANDRA CONSULTANT. CONTACTED LAUNDRY, AND THE RN FROM THE DAY PRIOR. THERE IS NO SIGN OF THE DENTURE/PALATE ANYWHERE. WILL CONTINUE TO LOOK.
[2020-09-25 07:29] VITALS: BP 106/77; PULSE 109; TEMP 97.4
--- NOTE | 2020-09-25 11:39 | NUR ---
Long conversation today with , Alejandra Reveles, by phone. She reports that he is very discouraged and feels that he will soon. She is very upset that he is having this experience and yet understands that he is going through a fractured hip and repair and has been placed in isolation away from family and friends and feeling very alone. He is struggling to work with therapy at this time at least partially because of his depression. Support provided to Alejandra that in a few days he will be able to come out of isolation and she will be able to visit him. She reports that up until this point he has wanted to continue to fight and try to remain at home with her. He is at a point in his cancer treatment that they are "watching to see how the cancer does". She does not believe that he would choose to start a new therapy is the cancer surges again. We did explore the options of continuing to pursue therapy and strengthening to allow him to return home, vs a [facility] care facility if he cannot regain strength, vs a focus more on comfort with recognition that his will likely occur within 6 months. She is wanting to give him a chance to respond to new antidepressant, to be with family again, and to see how he does with therapy. I did contact Latoya Del Toro about possible qualification for disability and early medicare benefits and she will meet with them next week to help with their application. Support provided and contact information was also given. Will try to visit with Shaji this afternoon.
--- NOTE | 2020-09-25 13:19 | NUR ---
Circuit Tester collaborated with Karina Palliative RN who contacted patient's , Alejandra earlier today. Alejandra would like to see how patient does with his new medication and once he gets out of isolation. See Palliative Note for further detail.
--- NOTE | 2020-09-25 13:52 | NUR ---
Attempted to meet with Shaji this afternoon but he was working with PT pedaling a stationary bike. He was by a window with sunlight shining through and seemed to be working to pedal pretty well. I anticipate that he will be quite tired after this ride so will try to see him later today or maybe in the morning.
[2020-09-25 17:23] VITALS: BP 106/77; PULSE 100; TEMP 97.6
--- NOTE | 2020-09-25 19:35 | NUR ---
PT HAS HAD AN EVENTFUL DAY, FULL OF PT/OT/ST. THE PT WAS HESITANT TO WORK WITH PT D/T BEING TIRED FROM THE EVENTS EARLIER IN THE DAY. THE FAMILY WAS ON FACETIME WITH THE PATIENT EARLY IN THE MORNING, AND THIS RN KEPT FAMILY UP TO DATE ON THE PT'S STATUS THROUGHOUT THE DAY. THE FAMILY FELT VERY COMFORTABLE CONTINUING CARE IS WITH IPR, AND NOT NEEDING THE PALLIATIVE CARE CONSULT. THE FAMILY WOULD LIKE TO SEE HIM GET STRONG ENOUGH TO COME BACK HOME AND BE TAKEN CARE OF THERE. THE PATIENT HAS HAD A LOT OF ANXIETY REGARDING SOCIAL ISOLATION THAT CAUSES HIM TO SCREAM OUT FOR HELP. HE HAS BEEN GIVEN MEDICATIONS TO HELP WITH THAT. THE PAIN FROM HIS HIP SURGERY HAS BEEN EXCRUCIATING AND HE HAS REQUIRED PAIN MANAGEMENT TO KEEP THAT UNDER CONTROL. THERE ARE NO OTHER CONCERNS AT THIS TIME. BED ALARMS ARE ON, AND PT CALL LIGHTS ARE WITHIN REACH. REPORT GIVEN TO CHANDRA MEEKS
--- NOTE | 2020-09-25 22:10 | NUR ---
Patient laying in bed upon enter the room. Lots of moaning and calling out for pain. Patient appears very anxious as well. Patient c/o of torres catheter and wants torres to be out so that he can go home. Patient said that he has been isolated /stayed in the hospital too long and he wants to go home. Patient also feeling nauseous. PRN [place] PO given for nausea. PRN [place] and Ativan PO given for pain and anxiety. Patient is currently on oxygen 4L via NC. Breathing even and unlabored. No acute respiratory distress noted. Call light within reach. Will continue to monitor.
[2020-09-26 05:10] VITALS: BP 104/74; PULSE 102; TEMP 97.9
--- NOTE | 2020-09-26 05:54 | NUR ---
PRN [place] and Ativan given throughout the night for pain and anxiety. Patient denies N/V this morning. Call light within reach. Will give report to day shift RN.
--- NOTE | 2020-09-26 07:02 | NUR ---
PT IS CRYING OUT AT THIS TIME ASKING TO HAVE HIS MALHOTRA REMOVED. WILL DISCUSS THE POSSIBILITY WITH PROVIDER TODAY. NO OTHER CONCERNS AT THIS TIME. PT REMAINS FULL OF ANXIETY, BUT HAS NOT HAD ANY NAUSEA SINCE LAST NIGHT. PT STATES HE IS READY TO BE RELEASED, AND DOES NOT WANT TO BE HERE ANY LONGER. THIS RN IS IN COMMUNICATION WITH FAMILY WHO IS ANXIOUSLY WAITING FOR HIM TO BE TRANSFERRED TO AN [facility] ROOM OUT OF ISOLATION. WILL CONTINUE TO MONITOR. CALL LIGHT WITHIN REACH, BED ALARM ON.
[2020-09-26 07:21] LABS: HEMOGLOBIN 11.3 g/dl (13.5-18.0); MEAN CELL VOLUME 99 fl (80.0-100.0); MEAN CORPUSCULAR HEMOGLOBIN 32 pg (27.0-31.0); MEAN CORPUSCULAR HGB CONC 32 g/dl (33.0-37.0); MEAN PLATELET VOLUME 9.3 fl (7.4-10.4); PLATELET COUNT 353 K/mm3 (130-400); RED BLOOD COUNT 3.57 M/mm3 (4.20-5.60); REDCELL DISTRIBUTION WIDTH-CV 13.8 % (11.5-14.5)
[2020-09-26 07:29] LABS: CALCIUM 8.7 mg/dL (8.4-10.2); CREATININE, serum 0.6 (0.66-1.25); MAGNESIUM 1.9 mg/dL (1.6-2.3); POTASSIUM 3.9 mmol/L (3.4-5.0)
[2020-09-26 07:30] LABS: HEMATOCRIT 35.4 % (42.0-52.0)
[2020-09-26 07:51] LABS: BAND 5 % (0-10); LYMPHOCYTE 15 % (20.0-51.0); METAMYELOCYTE 1 % (0-0); NEUTROPHILS 74 % (42.0-75.2); PLATELET ESTIMATE NORMAL (NORMAL)
--- NOTE | 2020-09-26 11:48 | NUR ---
Shaji is sleeping soundly after therapy. His did call me and asked for Latoya Del Toro's phone number to call and try to set up an appt with her to do the disability/medicare paperwork. I did give her the number and told her I would continue to try to meet with Shaji but felt his therapy took priority. She agreed.
--- NOTE | 2020-09-26 13:15 | NUR ---
Admission QIM scores were reviewed by the team. Code of 88 chosen for toileting transfers was determined by team discussion to be the most usual performance for this patient during the assessment period. Code of 88 chosen for shower/bathe self was determined by team discussion to be the most usual performance for this patient during the assessment period. Code of 1 chosen for lower body dressing was determined by team discussion to be the most usual performance for this patient during the assessment period. Code of 1 chosen for putting on/taking off footwear was determined by team discussion to be the most usual performance for this patient during the assessment period.--Tanya Carrillo, PD
--- NOTE | 2020-09-26 13:57 | NUR ---
Patient is working with rehab now. I did not interupt. will keep in touch with his nurses and hopefully he can move to [facility] soon.
--- NOTE | 2020-09-26 14:07 | NUR ---
Arcade Game Technician contacted patient's to check in before the weekend. She asked if patient could get his catheter out today. SW contacted patient's RN Alix who advised his catheter would be removed this afternoon.
--- NOTE | 2020-09-26 14:50 | NUR ---
Able to meet with Shaji this afternoon. He was able to tell me that he was thirsty and needed the bed up so he could safely drink. He reports that therapy is hard sometimes but he is able to do it with support. he is aware that he will move to [facility] for ongoing care possibly tomorrow and hopefully will be able to see his which will help a lot. Pt is quick to identify that he worries about his cancer acting up again but feels he can work hard to try to get stronger to go home. He requests that he would like a nap now and so our conversation was ended and he will try to rest for a while.
[2020-09-26 17:01] VITALS: BP 118/62; PULSE 88; TEMP 98.1
--- NOTE | 2020-09-26 18:57 | NUR ---
Report recieved from day shift RNAlix. Patient resing in bed with eyes closed upon shift start. No acute distress noted. Call light within reach. Will continue to monitor.
--- NOTE | 2020-09-26 21:14 | NUR ---
Patient resting in bed comfortably with eyes closed. Opens eyes with calling his name. Patient appears drowsy. Went back to sleep immediately. Currentl on oxygen 2L via NC. No SOB or dyspnea noted while at rest. FLACC 0/10 while at rest. Ferraro catheter draining clear yellow urine. Shift assessment completed and charted. Call light within reach. Will continue to monitor.
[2020-09-27 05:47] VITALS: BP 128/68; PULSE 92; TEMP 98.2
--- NOTE | 2020-09-27 05:48 | NUR ---
Patient slept well throughout the night. Patient awake around 5:20 am and calling out for pain. PRN [place] given at 05:29 am. Ferraro catheter removed per order. Call light within reach. Will give report to day shift RN.
--- NOTE | 2020-09-27 08:00 | NUR ---
PT and OT in the room with the patient. Nurse assisting as needed. Patient Alert and confused. Denies pain and discomfort. VSS 2L NC O2. IV CDI. No further needs expressed from the patient. Droplet and contact precautions in place. Call light within reach
--- NOTE | 2020-09-27 10:00 | NUR ---
Right hip dressing CDI. Right leg elevated on pillow. Right arm contracted. Patient assisted with using the urinal. Facetime set up on patients laptop. No further needs expressed from the patient. Call light within reach
[2020-09-27 16:41] VITALS: BP 106/66; PULSE 83; TEMP 97.4
--- NOTE | 2020-09-27 18:09 | NUR ---
Patient worked with PT/OT and tolerated well. Slept most of the day and would shout out for help when needing help with the urinal. Alert and partially confused. Pain medication given when requested. VSS. 1L NC O2. IV CDI. RT hip incision site CDI. Droplet/contact precautions in place. Call light within reach. Bed alarm on
--- NOTE | 2020-09-27 19:28 | NUR ---
Resting quietly, contact/droplet precautions continues, denies complaints of, O2@1Lper nc in use, requires x 1-2 assist with adls, poor appetite continues,
[2020-09-27 20:24] VITALS: BP 115/75; PULSE 84; TEMP 98.4
[2020-09-28 05:19] VITALS: BP 109/73; PULSE 83; TEMP 97.8
[2020-09-28 07:50] VITALS: BP 101/74; PULSE 86; TEMP 97.2
--- NOTE | 2020-09-28 08:00 | NUR ---
Patient layin in bed, incontinent of urine. Nursing staff assisting with changing the patient. A&Ox3. Reports pain in RT hip, pain medication given when requested. VSS 1L NC O2, no reported SOB. IV CDI. Patient refused breakfast, wanted to go back to bed. Droplet/contact precautions in place. No further needs expressed from the patient. Call light within reach. Bed alarm on
[2020-09-28 11:52] VITALS: BP 119/81; PULSE 81; TEMP 97.2
[2020-09-28 15:10] VITALS: BP 105/75; PULSE 91; TEMP 97.4
--- NOTE | 2020-09-28 18:02 | NUR ---
Patient more alert today and slept most of the day. Nurse set up the patients laptop so he could speak with family. A&Ox3. VSS 1L NC O2. IV CDI. Nursing staff and family encouraging the patient to increase PO intake. Patient has requested the family bring him food to help with increasing PO intake. Pain medication given as needed. Droplet/contact precautions in place. Call light within reach. Bed alarm on
--- NOTE | 2020-09-28 20:26 | NUR ---
Patient resting quietly, call gill w/i reach, O2 @ 1L per NC in use, pain to R hip- readjusted in bed, updated on plan of care, [place].
--- NOTE | 2020-09-28 22:38 | NUR ---
Patient c/o pain to R hip surgical site, site is with dressing c/d/i, repositioned, medicated per MAR with good effects, family brought fried chicken- patient sitting up eating chicken and tolerating well, O2@1-2 L per NC to maintain sats >90%, call gill w/i reach. Will continue to monitor.
[2020-09-29 06:41] VITALS: BP 116/81; PULSE 77; TEMP 97.6
--- NOTE | 2020-09-29 07:00 | NUR ---
Report received from CHANDRA Samaniego. pT in bed resting with eyes closed, will continue to monitor.
--- NOTE | 2020-09-29 10:12 | NUR ---
Assessment charted. Pt in bed eating breakfast in small amount. C/o some pain to R hip, not able to have narcotics at thsi time but can have the tylenol, provided tylenol. Pt is not oriented to date but knows hes in [place] and his own . R arm is very weak but does have some control of movement. R leg does move on bed but shakes a lot when trying to move. Dressing to R hip is CDI. INT to RFA. PAC to BETH is not accessed. Will c ontinue to monitor.
--- NOTE | 2020-09-29 10:24 | NUR ---
Noted Covid + on 3-3-21 on surgical preop screen. Pt w/ known lung cancer. Afebrile >6 days. Compliant with mask use. Patient has completed antibiotic regimen. Chest X-ray unremarkable. Will discontinue contact/droplet precautions.
--- NOTE | 2020-09-29 10:26 | NUR ---
Call received from Infection Control nurse CHANDRA Barrow and will be able to move pt out of isolation and over to IPR after therapy today. Will get all belonigns transferred and continue to monitor.
--- NOTE | 2020-09-29 11:02 | NUR ---
Report called to CHANDRA Lamb on IPR who will resume care of patient.
--- NOTE | 2020-09-29 11:23 | NUR ---
Inspection Supervisor notified patient's , Alejandra that patient was moved to Room 338 and is now out of isolation.
--- NOTE | 2020-09-29 11:59 | NUR ---
SW met with the patient to introduce oneself and to follow up. The patient was lying in bed and states that he is doing fine. He had no questions for SW at this time. SW to continue to follow.
[2020-09-29 15:25] VITALS: BP 108/78; PULSE 89; TEMP 97.5
--- NOTE | 2020-09-29 19:05 | NUR ---
PT TRANSFERRED OVER BY PT FROM ROOM 304 TO ROOM 338 THIS AM. PT WORKED WELL WITH THERPY. HAS REFUSED LUNCH AND ATE VERY LITTLE FOR DINNER. RECEIVED PRN NORCO TWICE SINCE COMING OVER AND APAP ONCE. UTILIZED ICE THERAPY TO HIP. PT CONTINUES TO MOAN INTERMITTENTLY. IS ON RA AND SATING NORMALLY. PT USING URINAL FOR VOIDING.
--- NOTE | 2020-09-29 19:14 | NUR ---
RECEIVED CHANGE OF SHIFT REPORT FROM DAY SHIFT NURSE.
--- NOTE | 2020-09-29 20:00 | NUR ---
PATIENT ORIENTED TO NAME/. NOT AWARE OF TIME OR PLACE OR SITUATION, VERY [place], HEARING AID IN PLACE TO LEFT EAR. DENIES CHEST PAIN/SOA/NAUSEA AT THIS TIME. BED ALARM ON WHEN IN BED. PATIENT ON ROOM AIR. PATIENT REPORTS RIGHT SIDED WEAKNESS, OBSERVED RIGHT HAND CONTRACTION, NO SPONTANEOUS MOVEMENT TO RUE OR RLL AT THIS TIME.
--- NOTE | 2020-09-30 02:15 | NUR ---
COMPLAINS OF INDIGESTION, SEE MAR FOR MEDS GIVEN.
[2020-09-30 04:50] VITALS: BP 129/86; PULSE 102; TEMP 98.3
--- NOTE | 2020-09-30 05:11 | NUR ---
EMESIS OF [place] BILE LOOKING VOMITED WHILE PATIENT ATTEMPTED TO VOID, ABOUT 25 ML IN VOLUME. DENIED FURTHER NEEDS TO VOMIT AT THIS TIME. REPORTED URGE TO VOID SUBSIDED BUT SAID LEAVING URINAL BETWEEN LEGS WAS OKAY FOR NOW.
--- NOTE | 2020-09-30 07:01 | NUR ---
PT RESTING IN BED AT REPORT, NOTED THAT PT WAS VOMITTING UP BILE EARLY THIS AM. WILL CONTINUE TO MONITOR.
--- NOTE | 2020-09-30 07:05 | NUR ---
CHANGE OF SHIFT REPORT GIVEN TO DAY SHIFT NURSE, ANJELICA ARTIS.
--- NOTE | 2020-09-30 17:38 | NUR ---
ENCOURAGING PT TO DRINK MORE, PT NOT VOIDING MUCH. BLADDER SCANNED POST VOID TO CHECK FOR RESIDUAL. NONE NOTED. PT ATE LUNCH VERY LATE AND WILL EAT DINNER LATE WELL. RECEIVED PRN NORCO THIS AM PRIOR TO THERAPY AND HAS HAD APAP IN THE AFTERNOON. PT REPORTS INCREASED PAIN WHEN MOVING BUT DENIES NEEDING MORE NARCOTIC PAIN MEDICATION THIS EVENING.
[2020-09-30 17:39] VITALS: BP 104/77; PULSE 95; TEMP 97.6
--- NOTE | 2020-09-30 19:15 | NUR ---
PATIENT REPORTS HAS RIGHT SIDED WEAKNESS, OBSERVED R HAND CONTRACTED, UNABLE TO GRASP WITH R HAND. PATIENT REPORTS HE DOES NOT WANT TO TAKE NARCOTICS FOR PAIN, VOICED HE WAS NOT SURE HE WOULD EVEN TAKE TYLENOL FOR PAIN. DENIES CHEST PAIN/SOA/NAUSEA AT THIS TIME. BED ALARM ON WHEN IN BED.
--- NOTE | 2020-09-30 19:50 | NUR ---
RECEIVED CHANGE OF SHIFT REPORT FROM DAY SHIFT NURSE.
[2020-10-01 05:17] VITALS: BP 131/61; PULSE 74; TEMP 98
--- NOTE | 2020-10-01 07:17 | NUR ---
CHANGE OF SHIFT REPORT GIVEN TO DAY SHIFT NURSE, DESTIN ARTIS.
--- NOTE | 2020-10-01 09:01 | NUR ---
Patient working with therapy at this time. Patient given prn tylenol to help with right arm and leg pain. Will continue to monitor.
--- NOTE | 2020-10-01 14:21 | NUR ---
ESTHELA met with the patient to present and review the IPR Team Conference Note. The patient was resting. ESTHELA informed the patient how the team plans to re-evaluate him next Tuesday. The patient was agreeable to the plan. ESTHELA contacted the patient's , Alejandra, to review the above information. Alejandra reports that they are putting in a wheelchair ramp for the patient. She states that they have a walker, but would need a wheelchair. Alejandra would like to wait til next Tuesday to see how the patient does and go from there. SW to continue to follow.
--- NOTE | 2020-10-01 14:53 | NUR ---
Patient returned from OT this morning reporting 9/10 pain. Patient was given prn [place]. He also reported nausea when eating his lunch while working with ST. He was given prn Phergan. He is currently resting in bed, call light in reach and bed alarm set. He reports pain at 4/10 at this time. Will continue to monitor.
[2020-10-01 17:27] VITALS: BP 107/59; PULSE 88; TEMP 97.4
--- NOTE | 2020-10-01 18:57 | NUR ---
RECEIVED CHANGE OF SHIFT REPORT FROM DAY SHIFT NURSE.
[2020-10-02 05:38] VITALS: BP 97/70; PULSE 79; TEMP 97.3
--- NOTE | 2020-10-02 07:12 | NUR ---
CHANGE OF SHIFT REPORT GIVEN TO DAY SHIFT NURSE, DESTIN ARTIS.
--- NOTE | 2020-10-02 07:58 | NUR ---
Patient resting in bed eating breakfast at this time. Denies questions at this time. Given prn pain meds this AM. Will continue to monitor.
--- NOTE | 2020-10-02 09:50 | NUR ---
Patient was sitting on the toilet trying to have a BM this morning. When pushing he reported to therapy that he felt as if he was going to faint. This nurse along with WAREHOUSE TEAM LEADER/Chava and therapy transferred patient from the toilet to his bed to monitor him. VSS. DAR Ramirez was called to report of the Vasovagal episode that occured no new orders at this time. Patient currently resting in bed, call light in reach and bed alarm set. OT will decided to give patient a break before starting therapy again. Will continue to monitor. Chart .
--- NOTE | 2020-10-02 10:15 | NUR ---
Spoke with Alejandra, , by phone today. She is still hopeful that he will be able to come home at discharge from [facility]. She is also aware that he will require / care. She has contacted the social security office and has appt with them on 10/13. She is very concerned about the cost of a residential placement as they have BC/BS fpr their insurance at this point. She feels he would do his best effort at home but is realistic that they may not be able to handle the workload. He is still struggling to eat and is doing modified therapy at this time.
--- NOTE | 2020-10-02 11:30 | NUR ---
Patient's daughters' number is [phone].
[2020-10-02 17:46] VITALS: BP 128/87; PULSE 110; TEMP 97.6
--- NOTE | 2020-10-02 20:21 | NUR ---
Patient had a large hard BM this afternoon. He continues to report issues with being full when eating small bites of food. This nurse spoke with patient's and she reported that patient's weight prior to coming to the hospital was 148 lbs. Patient continues to loose weight and has refused his supper this evening. Staff continues to encourage eating and drinking the nutrition drinks. Reported off to night nurse.
--- NOTE | 2020-10-02 21:00 | NUR ---
PT WAS SLEEPING. WOKE UP TO TAKE HS MEDS. PT TOOK THEM THEN VOMITED. NO PILLS FOUND IN VOMITUS. GAVE PHENERGAN- SEE MAR. PT DENIED PAIN. PT REPORTED HAS RT VISUAL DEFICITS- HE STARTS SCAN ROOM FROM LT TO RT TO SEE THE PERSON STANDING ON RT SIDE. DENIES BLURRED OR DOUBLE VISION. HE JUST "CANT MAKE HIS BRAIN WORK RIGHT". RT ARM PULLED UP ON CONTRACTURE FORM. VERY WEAK ON RT SIDE. CALL LIGHT IN REACH. BED ALARM SET.
--- NOTE | 2020-10-03 04:19 | NUR ---
PT HAS BEEN RESTING WELL TONIGHT. NO DISTRESS. NO IMPULSIVENESS.
--- NOTE | 2020-10-03 04:45 | NUR ---
PT AWAKE. C/O MIDSTERNAL CHEST PAIN AND RLE PAIN. LEVEL 8. VSS 141/[id number] O2 SAT 86-87% RA. ADDED O2 2L NC AT THIS TIME. HR SOUNDS REGULAR. SEE MAR FOR NORCO AND PHENERGAN GIVEN. HAVING MILD NAUSEA AFTER SITTING HOB UP. WILL CONTINUE TO MONITOR. ICE PACK TO RLE. SCD'S OFF PER REQUEST. READJUSTED RLE FOR BETTER ALLIGNMENT. REPLACED PILLOW TO FLOAT HEELS. CALL LIGHT IN REACH.
[2020-10-03 05:00] VITALS: BP 141/70; PULSE 98; TEMP 97.7
--- NOTE | 2020-10-03 05:20 | NUR ---
PT RESTING. AWAKE. PAIN MUCH BETTER. NAUSEA RESOLVED. SPOT CHECK O2 94% ON 2L NC. DENIES NEEDS AT THSI TIME.
[2020-10-03 06:14] LABS: HEMOGLOBIN 10.6 g/dl (13.5-18.0); MEAN CELL VOLUME 99 fl (80.0-100.0); MEAN CORPUSCULAR HEMOGLOBIN 32 pg (27.0-31.0); MEAN CORPUSCULAR HGB CONC 32 g/dl (33.0-37.0); PLATELET COUNT 522 K/mm3 (130-400); RED BLOOD COUNT 3.36 M/mm3 (4.20-5.60); REDCELL DISTRIBUTION WIDTH-CV 15.1 % (11.5-14.5)
[2020-10-03 06:18] LABS: CALCIUM 8.7 mg/dL (8.4-10.2); CREATININE, serum 0.57 (0.66-1.25)
[2020-10-03 06:24] LABS: HEMATOCRIT 33.3 % (42.0-52.0)
[2020-10-03 06:48] LABS: BAND 11 % (0-10); LYMPHOCYTE 28 % (20.0-51.0); NEUTROPHILS 56 % (42.0-75.2); PLATELET ESTIMATE INCREASED (NORMAL)
--- NOTE | 2020-10-03 09:00 | NUR ---
PT SLEEPING IN BED AT SHIFT REPORT. BED ALARM ON, CALL LIGHT WITHIN REACH. PT DENIES PAIN THIS AM.
--- NOTE | 2020-10-03 11:04 | NUR ---
Several visit attempts; Ladle Liner Helper left card with prayer and God's blessings.
[2020-10-03 17:32] LABS: HEMOGLOBIN 11.1 g/dl (13.5-18.0)
[2020-10-03 17:34] LABS: HEMATOCRIT 34.3 % (42.0-52.0)
[2020-10-03 17:56] VITALS: BP 110/80; PULSE 110; TEMP 97.3
--- NOTE | 2020-10-03 19:53 | NUR ---
PT HAD A COUPLE EPISODES OF GAGGING ON MUCUS/PHLEGM TODAY BUT NO TRUE VOMITTUS. PT REMAINS VERY ANXIOUS ABOUT THE POTENTIAL FOR VOMITTING. PT GIVEN TWO DOSES OF PRN NORCO AND ICE THERAPY UTILIZED. PT DOING BETTER PIVOT TRANSFERRING TO COMMODE. HAD TWO BM'S TODAY. RED STREAKS NOTED IN THE FIRST. CLOTS NOTED IN THE SECOND. MID LEVEL OBED NOTIFIED AND ORDERS TO HOLD ELIQUIS FOR TONIGHT AND TOMORROW PLACED AND OCCULT STOOL. LABS RECHECK AND APPEAR TO HAVE IMPROVED. WILL CONTINUE TO MONITOR. PT AT WELL FOR BREAKFAST, NO LUNCH AND WELL FOR DINNER, IS SEVERALLY MALNOURISHED.
--- NOTE | 2020-10-03 21:00 | NUR ---
PT RESTING IN BED. HOB ELEVATED. OCCASIONAL LOOSE COUGH. SEE SHIFT ASSESSMENT. PT HAS HAD NO FURTHER RECTAL BLEEDING. RLE PAIN RELIEVED BY NORCO GIVEN AT SHIFT CHANGE. REPOSITIONED RLE FOR GOOD ALLIGNMENT. ICE PACK TO RT HIP. DENIES NAUSEA AT THIS TIME. CALL LIGHT IN REACH. BED ALARM SET.
[2020-10-03 22:03] VITALS: PULSE 88
[2020-10-03 22:19] LABS: CALCIUM 8.9 mg/dL (8.4-10.2); CREATININE, serum 0.58 (0.66-1.25); POTASSIUM 4.1 mmol/L (3.4-5.0)
[2020-10-04 05:51] VITALS: BP 103/64; PULSE 80; TEMP 98
[2020-10-04 05:55] LABS: HEMOGLOBIN 10.3 g/dl (13.5-18.0)
[2020-10-04 06:09] LABS: HEMATOCRIT 31.8 % (42.0-52.0)
[2020-10-04 08:00] LABS: CREATININE, serum 0.57 (0.66-1.25); POTASSIUM 3.8 mmol/L (3.4-5.0)
[2020-10-04 16:43] VITALS: BP 116/66; PULSE 93; TEMP 97.6
--- NOTE | 2020-10-04 18:57 | NUR ---
PATIENT REPORTING MINIMAL TO NO PAIN THROUGHOUT THE DAY WITH THE FENTANYL PATCH IN PLACE. NO ADDITIONAL PAIN MEDICATIONS NEEDED THROUGHOUT THE SHIFT. PATIENT REQUIRES MAX TWO ASSIST IN PIVOT TRANSFERS TO COMMODE. PATIENT ABLE TO ASSIST STAFF IN MOVING SELF UP IN BED WITH VERBAL CUEING. REPORT GIVEN TO CHANDRA GLOVER.
--- NOTE | 2020-10-04 20:30 | NUR ---
PT RESTING IN BED. BROUGHT SOME FOOD IN EARLIER. ATE APPROX 40 % PT DENIES NAY NAUSEA. CHANGED FENTANYL PATCH TO LT CHEST. CLOSE TO INFUSAPORT. PT SWALLOW MED WELL. SPEECH DIFFICULT TO UNDERSTAND WITH UPPER PLATE IN. PT DENIES NEED FOR PAIN MEDICATION AT THIS TIME. DOING WELL TONIGHT. CALL LIGHT IN REACH. BED ALARM SET.
[2020-10-05 05:26] VITALS: BP 113/72; PULSE 75; TEMP 97.5
[2020-10-05 07:44] LABS: CREATININE, serum 0.56 (0.66-1.25); POTASSIUM 3.8 mmol/L (3.4-5.0)
--- NOTE | 2020-10-05 13:31 | NUR ---
PATIENT CALLED OUT REQUESTING PAIN MEDICATION. PATIENT REPOSITIONED IN BED AND GIVEN PRN PAIN MEDICATION FOR PAIN RATED AN 8-9/10 IN THE RIGHT HIP. PATIENT DENIES OTHER NEEDS AT THIS TIME.
--- NOTE | 2020-10-05 15:50 | NUR ---
PATIENT LINENS CHANGED. PATIENT REPOSITIONED IN BED. RLE ELEVATED ON TWO PILLOWS. LLE ELEVATED ON ONE PILLOW. PATIENT REPORTING THAT HIS PAIN IS NOW A 3-4/10 AFTER THE NORCO. ICE PACK APPLIED TO RIGHT HIP. CALL LIGHT IN REACH. PRESENT AT THE BEDSIDE. FLUIDS ENCOURAGED THROUGHOUT THE SHIFT. REPORT GIVEN TO CHANDRA GLOVER.
[2020-10-05 16:04] VITALS: BP 106/82; PULSE 83; TEMP 98.1
--- NOTE | 2020-10-05 20:00 | NUR ---
PT SLEEPY TONIGHT. REFUSES FOOD AT THIS TIME. RETURNS TO SLEEP. CALL LIGHT IN REACH. BED ALARM SET.
[2020-10-06 05:08] VITALS: BP 132/82; PULSE 86; TEMP 97.6
[2020-10-06 06:41] LABS: HEMOGLOBIN 10.7 g/dl (13.5-18.0); MEAN CELL VOLUME 100 fl (80.0-100.0); MEAN CORPUSCULAR HEMOGLOBIN 32 pg (27.0-31.0); MEAN CORPUSCULAR HGB CONC 32 g/dl (33.0-37.0); MEAN PLATELET VOLUME 8.8 fl (7.4-10.4); PLATELET COUNT 475 K/mm3 (130-400); REDCELL DISTRIBUTION WIDTH-CV 15.4 % (11.5-14.5)
[2020-10-06 07:09] LABS: BAND 2 % (0-10); BASOPHIL 1 % (0-2); EOSINOPHIL 3 % (0-4); LYMPHOCYTE 32 % (20.0-51.0); NEUTROPHILS 56 % (42.0-75.2); PLATELET ESTIMATE INCREASED (NORMAL)
--- NOTE | 2020-10-06 09:12 | NUR ---
ESTHELA contacted the patient's , Alejandra, to discuss getting a patient/family meeting set up. A patient/family meeting was scheduled for Tuesday at 1300. If team meeting is at 1300, Alejandra states that 1330 would work for the patient/family meeting too. ESTHELA to inform IPR Director.
--- NOTE | 2020-10-06 09:27 | NUR ---
PT SLEEPING IN BED AT SHIFT REPORT. PT REPORTED NO PAIN AT TIME OF ASSESS AND AM MEDS. WHEN THERAPY GOT THER SHORTLY AFTER HE WAS MOANING OUT IN PAIN, PRN APAP GIVEN AT THIS TIME. NORCO TOO SOON TO GIVE.
[2020-10-06 18:36] VITALS: BP 125/89; PULSE 99; TEMP 97.7
--- NOTE | 2020-10-06 19:08 | NUR ---
PT RECEIVED PRN NORCO ONCE THIS SHIFT, WORKED ON TRANSFERS TO BSC WITH DROP ARM AND DID WELL WITH THERAPY.
[2020-10-07 04:09] VITALS: BP 130/79; PULSE 94; TEMP 97.2
--- NOTE | 2020-10-07 04:36 | NUR ---
PAtient had no complaints of pain throughout the shift. Voided in urinal. No other needs at this time. Call light in reach.
--- NOTE | 2020-10-07 06:12 | NUR ---
Patient moaning and calling out this morning. Asked patient if he was in pain and he said yes. Pain medication administered.
--- NOTE | 2020-10-07 08:08 | NUR ---
Patient resting in bed, call light in reach and bed alarm set. Patient denies any questions at this time. Given prn pain meds will continue to monitor.
--- NOTE | 2020-10-07 10:47 | NUR ---
Patient was in the middle of working with ST this morning and he had an episode of vomiting. Patient vomited approx. 250 ml of fluid up that looked like orange juice and eggs that patient had eaten earlier this morning. Patient was given prn phergan. Will continue to monitor.
--- NOTE | 2020-10-07 15:41 | NUR ---
IPR team meeting was moved to 1300. SW contacted the patient's , Alejandra, and rescheduled the patient/family meeting at 1330 tomorrow.
[2020-10-07 17:45] VITALS: BP 99/75; PULSE 106; TEMP 97.7
--- NOTE | 2020-10-07 20:00 | NUR ---
PATIENT ALERT AND TALKATIVE, SOME CONFUSED LANGUAGE, RIGHT HIP PAIN NEEDED REPOSITIONED, EASILY COMFORTED
[2020-10-08 05:46] VITALS: BP 117/68; PULSE 82; TEMP 98.2
--- NOTE | 2020-10-08 15:47 | NUR ---
SW attended the patient/family meeting. The patient's , Alejandra, was at bedside. Their daughter, Liz, was on speaker phone. Also present was IPR Director, PT, OT, and ST. IPR Director started by explaining the purpose of the meeting. PT/OT/ST then discussed the patient's progress so far. The team informed the patient and his family that they would like to re-evaluate the patient next Tuesday and that a d/c date has not been set yet. The team will have a more definitive plan next Tuesday. The patient and his family were agreeable to the plan. The team informed them that the patient will need a wheelchair for at home and that home health will likley be what they recommend upon discharge. The team also discussed having the patient's come in for some family training. The patient's was agreeable to this. The patient's daughter asked if her or her sister could also come in to learn the training to help their mom. IPR foreign exchange position clerk to check with the floor press operator about this. The team answered all questions. SW then followed up with the patient to present and review the IPR Team Conference Note. The patient had no other questions for SW at this time.
--- NOTE | 2020-10-08 17:08 | NUR ---
Patient just tried to get out of bed on his own needing to use the bathroom. He was a two person assist to the BSC using his meenakshi walker. Patient confused and did not know how to use the toilet at first. He required a lot of queing. Patient was edcuated on the need to use his call light. He voiced understanding. Will continue to monitor.
[2020-10-08 17:30] VITALS: BP 104/73; PULSE 107; TEMP 97.5
--- NOTE | 2020-10-08 19:30 | NUR ---
RT HIP DRSG DC'D. NO DRAINAGE. HEALING VERY NICE. PT HAS DIFFICULTY KEEPING RLE IN GOOD ALIGNMENT. RT ARM CONTRACTURED.
--- NOTE | 2020-10-08 20:00 | NUR ---
HERE. FEEDING PT TONIGHT.. SHE RELATES PT IS ACTUALLY EATING WELL TONIGHT. PT MORE CONFUSED TONIGHT. VERY FORGETFUL. EASILY AGITATED. PT YELLING OUT IN PAIN OF RT HIP. SEE MAR FOR NORCO GIVEN AND ICE PACK. PLACED RLE IN GOOD ALIGNMENT- ELEVATED WITH PILLOW. ASISTED TO SIDE OF BED TO VOID. VOIDED SMALL AMT OF YELLOW CLEAR URINE. BACK TO BED CHANGED CLOTHING WITH MAX ASSIST. CALL LIGHT IN REACH. BED ALARM SET.
[2020-10-09 03:42] VITALS: BP 117/78; PULSE 81; TEMP 97.9
--- NOTE | 2020-10-09 06:01 | NUR ---
PT HAS WOKE UP A FEW TIMES IN THE NIGHT YELLING OUT. DREAMING OR WOKE UP VERY CONFUSED AND AGITATED. PT C/O RT HIP PAIN. SEE MAR FOR PAIN MED GIVEN. CALL LIGHT IN REACH. BED ALARM SET.
--- NOTE | 2020-10-09 12:10 | NUR ---
PT DENIES PAIN THIS AM WITH MORNING MEDS. PT SEEMS LESS CONFUSED THEN WAS REPORTED YESTERDAY AND LAST NIGHT. PT WAS ABLE TO WALK WITH THERAPY. DOING WELL WITH PIVOT TRANSFERS TO BED.
[2020-10-09 16:14] VITALS: BP 109/79; PULSE 96; TEMP 97.9
[2020-10-09 18:49] LABS: COLLECTION METHOD IN
[2020-10-09 18:55] LABS: MUCOUS Present /lpf; PH 5 (5-8); SQUAMOUS EPITHELIAL None Seen /hpf; URINE APPEARANCE Clear; URINE BACTERIA None Seen /hpf; URINE BILIRUBIN Negative (NEGATIVE); URINE BLOOD Negative (NEGATIVE); URINE COLOR Yellow; URINE GLUCOSE Negative (NEGATIVE); URINE KETONE 2+ (NEGATIVE); URINE LEUKOCYTE ESTERASE Negative (NEGATIVE); URINE NITRATE Negative (NEGATIVE); URINE PROTEIN(semi-quant) Negative (NEGATIVE); URINE RBC 0-2 /hpf; URINE UROBILINOGEN Negative (NEGATIVE)
--- NOTE | 2020-10-09 19:56 | NUR ---
PT HAD TWO EPISODES OF CONFUSION AFTER WAKING FROM NAPS TODAY, UNSURE WHERE HE WAS AND TRYING TO GET OUT. PT NOT USING CALL LIGHT CONSISTENTLY TODAY, JUST CALLING OUT WITH VOICE, ENCOURAGED TO CONTINUE USING. PT BLADDER SCANNED AFTER TWO CLOSE VOIDS OF SMALL AMOUNTS. UNABLE TO SEE MUCH OF BLADDER, DUE TO MASS OR LUMP ABOVE PENIS. MID LEVEL WILTON WAS NOTIFIED ABOUT MASS, AND ENCOURAGED US TO PUSH FLUIDS TO SEE IF INPUT IS MATCHING OUTPUT. PT IS DIFFICULT TO GET TO DRINK MUCH. UA WAS COLLECTED TONIGHT AWAITING RESULTS. PT DID NOT TAKE ANY PRN PAIN MEDICATION TODAY.
--- NOTE | 2020-10-09 20:00 | NUR ---
PT SLEEPING WELL. CALL LIGHT IN REACH BED ALARM SET.
--- NOTE | 2020-10-09 23:30 | NUR ---
PT MOANING LOUDLY IN PAIN. CONFUSED. ORIENTED TO SURROUNDINGS. PAIN MED GIVEN. SEE SEP. VOIDING SMALL ANDREW CLEAR AMTS. UA REVEALS NORMAL RESULTS. CALL LIGHT IN REACH. BED ALARM SET.
[2020-10-10 05:35] VITALS: BP 119/71; PULSE 79; TEMP 98
--- NOTE | 2020-10-10 08:03 | NUR ---
Patient resting in bed, call light in reach and bed alarm set. Patient reports pain 5/10 at this time and given prn norco. Will continue to monitor.
--- NOTE | 2020-10-10 14:56 | NUR ---
Spoke with patient's Alejandra about results of urine test. She voiced understanding. Patient attended all therapies today. Not as confused this morning or afternoon. Will continue to monitor.
--- NOTE | 2020-10-10 15:41 | NUR ---
SW attempted to meet with the patient to check in before the weekend. The patient was sleeping. SW contacted the patient's , Alejandra, to follow up on times for family training. Alejandra reports that Tuesday works for their daughter, Zainab, and she will be coming in [facility] for training. SW notified IPR Director. IPR Director reports that trainings have been scheduled on Tuesday at 1300 and Tuesday at 1000 with the patient's and daughter.
[2020-10-10 15:45] VITALS: BP 111/66; PULSE 97; TEMP 97.7
--- NOTE | 2020-10-10 19:47 | NUR ---
RECEIVED CHANGE OF SHIFT REPORT FROM DAY SHIFT NURSE, WHO TRIED TO CONTACT RN PACU HOSP PROVIDER (RE:POSITIVE OCCULT STOOL AND CONTINUING ON ELIQUIS), NOT ABLE TO TAKE CALL AT THIS TIME AND CALL PROVIDER AGAIN THIS SHIFT.
--- NOTE | 2020-10-10 20:00 | NUR ---
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 CONTINUED PARTIAL RIGHT EYE VISUAL DEFICIT, DENIES CHEST PAIN/SOA/NAUSEA AT THIS TIME. DENIES TINGLING/NUMBNESS TO EXTREMITIES AT THIS TIME.
--- NOTE | 2020-10-10 20:00 | NUR ---
RECEIVED CHANGE OF SHIFT REPORT FROM DAY SHIFT NURSE. BED ALARM ON WHEN IN BED, SPOUSE AT BEDSIDE ENCOURAGING PATIENT TO INCREASE PO FLUID/FOOD INTAKE AFTER PATIENT REFUSED SUPPER MEAL TRAY.
--- NOTE | 2020-10-10 22:23 | NUR ---
INFORMED PLUNGER MACHINE OPERATOR HOSP PROVIDER OF RESULTED LAB FOR OCCULT STOOL, AND IF OKAY TO GIVEN ELIQUIS SCHEDULED. PROVIDER ORDERED STAT CBC TO BE DRAWN AND WILL HOLD ELIQUIS FOR NOW UNTIL LAB RESULTS ARE AVAILABLE.
[2020-10-10 22:29] LABS: BASO # 0.1 (0.0-0.2); BASO % 1.1 % (0.0-2.0); EOS # 0.3 (0.0-0.7); EOS % 5.5 % (0-4.0); GRAN # 2.9 (1.4-6.5); GRAN % 55.3 % (42.2-75.2); HEMOGLOBIN 10.7 g/dl (13.5-18.0); LYMPH # 1.3 (1.2-3.4); MEAN CELL VOLUME 99 fl (80.0-100.0); MEAN CORPUSCULAR HEMOGLOBIN 32 pg (27.0-31.0); MEAN CORPUSCULAR HGB CONC 32 g/dl (33.0-37.0); MEAN PLATELET VOLUME 8.4 fl (7.4-10.4); MONO # 0.7 (0.1-0.6); MONO % 12.3 % (1.7-9.3); PLATELET COUNT 501 K/mm3 (130-400); RED BLOOD COUNT 3.33 M/mm3 (4.20-5.60); REDCELL DISTRIBUTION WIDTH-CV 15.9 % (11.5-14.5)
--- NOTE | 2020-10-10 22:52 | NUR ---
WHEN ASKED, PATIENT DENIES BLOODY STOOLS OR DRAINAGE FROM RECTUM TODAY. INFORMED ONCALL HOSP PROVIDER, LEYDA CADE, LAB RESULTS AVAILABLE, H/H UNCHANGED FROM 10/06 (10.7), VERBAL ORDER FOR DEEPTI TO CONTINUE AT THIS TIME.
[2020-10-11 05:26] VITALS: BP 118/67; PULSE 69; TEMP 98
--- NOTE | 2020-10-11 12:42 | NUR ---
PT SLEEPING IN BED AT SHIFT REPORT, NO PAIN THIS AM.
[2020-10-11 18:15] VITALS: BP 108/70; PULSE 100; TEMP 97.8
--- NOTE | 2020-10-11 19:10 | NUR ---
PT DENIED ANY NEED FOR PRN PAIN MANAGEMENT TODAY. WALKED IN HALLWAY WITH X RAY TECH AND TO BATHROOM USING PLATFORM WALKER. NEEDS REMINDERS TO KEEP FEET APART WHILE WALKING AND NOT WALKNG ON TOP OF EACH OTHER. PT'S APPETITE DOES SEEM TO HAVE INCREASED THOUGH STILL IS UNABLE TO TAKE MUCH IN BEFORE FEELS FULL.
--- NOTE | 2020-10-11 19:48 | NUR ---
DENIES CHEST PAIN/SOA/NAUSEA AT THIS TIME. BED ALARM ON WHEN IN BED.
--- NOTE | 2020-10-11 20:00 | NUR ---
CHRONIC RIGHT HAND CONTRACTURE AND RIGHT SIDED WEAKNESS CONTINUES PER PATIENT. DENIES CHEST PAIN/SOA/NAUSEA AT THIS TIME. DENIES NUMBNESS/TINGLING TO EXTREMITIES AT THIS TIME. BED ALARM ON WHEN IN BED. UP TO BSC FOR STOOLING AND VOIDING WELL USING URINAL FOR VOIDING. DENIES NEED FOR PAIN MED AT THIS TIME.
--- NOTE | 2020-10-11 20:00 | NUR ---
RECEIVED CHANGE OF SHIFT REPORT FROM DAY SHIFT NURSE.
[2020-10-12 05:19] VITALS: BP 119/69; PULSE 71; TEMP 98.3
--- NOTE | 2020-10-12 06:58 | NUR ---
CHANGE OF SHIFT REPORT GIVEN TO DAY SHIFT NURSE, ANJELICA ARTIS.
--- NOTE | 2020-10-12 07:02 | NUR ---
PT SLEEPING IN BED AT SHIFT REPORT. WOKE UP FOR AM PILLS WITH NIGHT NURSE AND STATED HE WANTED TO GO BACK TO SLEEP.
[2020-10-12 16:56] VITALS: BP 114/81; PULSE 96; TEMP 97.8
--- NOTE | 2020-10-12 18:25 | NUR ---
PT WAS ASSISTED UP AND ATTEMPTED TO WALK TO BATHROOM THIS AM, WAS UNABLE TO GET RLE TO MOVE AND HAD TO SIT BACK DOWN. PT HAS REFUSED GETTING OUT OF BED AGAIN TODAY, CONFUSED BY TIME OF DAY B/C HE SLEEPS AND WANTS CURTAINS DRAWN. ATE WELL FOR BREAKAST FEELS APPETITE HAS INCREASED.
--- NOTE | 2020-10-12 19:23 | NUR ---
RECEIVED CHANGE OF SHIFT REPORT FROM DAY SHIFT NURSE.
--- NOTE | 2020-10-12 20:00 | NUR ---
CHRONIC RIGHT HAND CONTRACTURE AND CHRONIC RIGHT SIDED WEAKNESS PER PATIENT. SEE MAR FOR PAIN MEDS GIVEN. BED ALARM ON WHEN IN BED.
--- NOTE | 2020-10-12 23:50 | NUR ---
DENIES ANY NEEDS OR COMPLAINTS OF PAIN AT THIS TIME.
[2020-10-13 05:31] VITALS: BP 108/64; PULSE 69; TEMP 98
--- NOTE | 2020-10-13 07:49 | NUR ---
CHANGE OF SHIFT REPORT GIVEN TO DAY SHIFT NURSE, ALLISON ARTIS AND A CAPSTONE ELECTRICIAN JOURNEYMAN WIREMAN.
--- NOTE | 2020-10-13 11:42 | NUR ---
ESTHELA met with the patient to follow up after the weekend. The patient states that he is doing alright and that the weekend went okay. His youngest daughter plans on coming in today for some training. SW to continue to follow.
[2020-10-13 15:31] VITALS: BP 112/76; PULSE 104; TEMP 97.5
--- NOTE | 2020-10-13 19:20 | NUR ---
RECEIVED CHANGE OF SHIFT REPORT FROM DAY SHIFT NURSE.
--- NOTE | 2020-10-13 20:00 | NUR ---
HAS CHRONIC RIGHT HAND CONTRACTURE AND RIGHT SIDED WEAKNESS HISTORY. DENIES CHEST PAIN/SOA/NAUSEA AT THIS TIME. DENIES NUMBNESS/TINGLING TO EXTREMITIES AT THIS TIME. BED ALARM ON WHEN IN BED.
[2020-10-14 05:02] VITALS: BP 132/71; PULSE 70; TEMP 97.4
--- NOTE | 2020-10-14 07:44 | NUR ---
CHANGE OF SHIFT REPORT GIVEN TO DAY SHIFT NURSE, DESTIN ARTIS.
--- NOTE | 2020-10-14 08:57 | NUR ---
Patient resting in bed, call light in reach and bed alarm set. Patient reporting paih 5/10 to right leg. Given prn pain meds, will continue to monitor.
[2020-10-14 15:55] VITALS: BP 97/70; PULSE 91; TEMP 98.3
--- NOTE | 2020-10-14 18:16 | NUR ---
Patient attended all therapies and his was able to assist with his transfers this shift. Patient uses his walker with ambulation. Patient has no skin issues at this time. Incisions are all healed. Patient eating more at his meal this morning. Patient currently sleeping in bed, call light in reach and bed alarm set. Will continue to monitor.
[2020-10-15 05:05] VITALS: BP 106/70; PULSE 78; TEMP 98.1
--- NOTE | 2020-10-15 05:14 | NUR ---
Patient called for help using his urinal throughout the shift. No complaints of pain. Bed alarm on and call light in reach.
--- NOTE | 2020-10-15 07:10 | NUR ---
Patient resting in bed, call light in reach and bed alarm set.
--- NOTE | 2020-10-15 16:01 | NUR ---
ESTEHLA contacted the patient's to review the IPR Team Conference Note. The team has set a anticipated discharge date for next Tuesday, 10/21, with home health PT/OT. They recommend a wheelchair, meenakshi-walker, and drop side commode. The patient's is agreeable to the plan. She requests that SW leave the Medicare.gov list of home health agencies that serve [place] in the patient's room. ESTHELA did this. She states that she will look over the list when she comes to visit the patient. Alejandra reports that she actually got a wheelchair for the patient today and she was able to get a meenakshi-walker from her niece at [facility]. ESTHELA informed Alejandra where she could obtain the drop side commode. A home assessment was scheduled for tomorrow at 1030. ESTHE[address] ESTHELA met with the patient and updated him on the above and reviewed the IPR Team Conference Note with him. He is agreeable to the d/c plan. ESTHELA to continue to follow.
[2020-10-15 17:36] VITALS: BP 111/73; PULSE 86; TEMP 97.8
--- NOTE | 2020-10-15 19:37 | NUR ---
Patient resting in bed call light in reach and at this side. Patient has been eating all his meals, but just very small portions. His reports that he has always been very picky about what he eats. She has been bringing his meals for him and this has helped with his appetite. Patient was a one assist with his meenakshi walker this afternoon with therapy. Reported off to night nurse.
--- NOTE | 2020-10-15 19:38 | NUR ---
RECEIVED CHANGE OF SHIFT REPORT FROM DAY SHIFT NURSE.
--- NOTE | 2020-10-15 20:00 | NUR ---
DENIES CHEST PAIN/SOA/NAUSEA. REFUSED MEAL TRAY FROM KITCHEN SENT REQUESTED AT 1910. AT BEDSIDE. DENIES NEEDS FOR PAIN MED AT THIS TIME. 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 BED ALARM ON WHEN IN BED.
[2020-10-16 05:06] VITALS: BP 115/58; PULSE 70; TEMP 97.7
--- NOTE | 2020-10-16 07:12 | NUR ---
CHANGE OF SHIFT REPORT GIVEN TO DAY SHIFT NURSE, ANJELICA ARTIS.
--- NOTE | 2020-10-16 10:31 | NUR ---
The patient's , Alejandra, contacted ESTHELA to report that they have chosen the home health agency, [facility]. ESTHELA contacted and faxed a referral to Beto at [facility]. Awaiting screen.
--- NOTE | 2020-10-16 12:21 | NUR ---
Merna, at [facility], reports that they are able to accept the patient for services.
--- NOTE | 2020-10-16 17:33 | NUR ---
PT REPORTED MILD PAIN IN RT FOOT AND DID TAKE PRN APAP THIS AFTERNOON. HASN'T C/O OF OTHER PAIN. WAS A MODERATE ASSIST TO GET TO BATHROOM FOR CUEING AND MOVING WALKER TO CORRECT PLACE. PT WAS NOT VERY STEADY WHILE TRANSFERRING EITHER, NEEDS REMINDING TO KEEP FEET APART AND NOT WALK ON TOP OF EACHOTHER.
[2020-10-16 18:06] VITALS: BP 115/85; PULSE 108; TEMP 97.7
--- NOTE | 2020-10-16 19:04 | NUR ---
RECEIVED CHANGE OF SHIFT REPORT FROM DAY SHIFT NURSE.
--- NOTE | 2020-10-16 20:00 | NUR ---
DENIES CHEST PAIN/SOA/NAUSEA AT THIS TIME. BED ALARM ON WHEN IN BED. AT BEDSIDE. CONTINUED CHRONIC R HAND CONTRACTURE AND R SIDED WEAKNESS. PATIENT USES RIGHT LEG BRACE AND HEMIWALKER/GAITBELT WITH AMBULATION WITH ASST.
[2020-10-17 05:12] VITALS: BP 120/68; PULSE 73; TEMP 98
--- NOTE | 2020-10-17 06:47 | NUR ---
CHANGE OF SHIFT REPORT GIVEN TO DAY SHIFT NURSE, ANJELICA ARTIS.
[2020-10-17 18:07] VITALS: BP 117/78; PULSE 83; TEMP 98.5
--- NOTE | 2020-10-17 19:29 | NUR ---
PT RECEIEVED PRN NORCO THIS AM AND PRN APAP THIS AFTERNOON. PT REPORTED PAIN AND REQUESTED NARCOTICS BEFORE IT WAS DUE, PT THEN FELL ASLEEP AND HAS BEEN NAPPING SINCE.
--- NOTE | 2020-10-17 21:00 | NUR ---
PT RESTING IN BED. /DAUGHTER HERE TO HELP PT WITH DINNER EARLIER. SEE MAR FOR NORCO GIVEN FOR GENEERLAIZED PAIN AND RT HIP PAIN. PT STILL HAS VISUAL DEFICITS TO RT. RT ARM CONTRACTED. PLACED ON PILLOW. PT ABLE TO TURN FOR COMFORT. NO SKIN ISSUES. CALL LIGHT IN REACH. BED ALARM SET.
[2020-10-18 05:12] VITALS: BP 101/71; PULSE 78; TEMP 98
--- NOTE | 2020-10-18 09:26 | NUR ---
Patient resting in bed, call light in reach and resting in bed. Patient refused his breakfast, but is currently drinking his ensure. Patient denies questions at this time.
[2020-10-18] MEDS ORDERED: RT Anoro Ellipta IH (12:16)
[2020-10-18] MEDS ORDERED: ZOLOFT 100MG100 MG PO (12:17)
[2020-10-18 15:51] VITALS: BP 124/70; PULSE 100; TEMP 97.5
--- NOTE | 2020-10-18 21:00 | NUR ---
PT RESTING IN BED. JUST LEFT. HAVING ALITTLE CONFUSION. ASKING FOR TV REMOTE. PT HAD IT IN HIS HAND. GAVE HS PILLS. DENIES NEED FOR PAIN MED AT THIS TIME. RT ARM ELEVATED WUPPOET ON PILLOWS. CALL LIGHT IN REACH. BED ALARM SET.
[2020-10-19 05:21] VITALS: BP 100/70; BP 115/62; PULSE 76; TEMP 98.8
--- NOTE | 2020-10-19 12:23 | NUR ---
Patient was a one CGA with walking to the bathroom with his meenakshi walker. Patient was a mod assist with removing and putting shoes on. Patient currently resting in bed eating his lunch with daughter by his side. Will continue to monitor.
[2020-10-19 14:59] VITALS: BP 112/73; PULSE 75; TEMP 97.6
--- NOTE | 2020-10-19 15:59 | NUR ---
Patient sleeping in bed at this time.
--- NOTE | 2020-10-19 21:00 | NUR ---
PT RESTING IN BED. REPOSITIONS SELF FOR COMFORT. SEE MAR FOR NORCO GIVEN FOR RLE PAIN. RT ARM CONTRACTED. CALL LIGHT IN REACH. BED ALARM SET.
[2020-10-20 04:28] VITALS: BP 103/77; BP 151/58; PULSE 66; TEMP 98.3
[2020-10-20 15:57] VITALS: BP 126/81; PULSE 91; TEMP 98.2
--- NOTE | 2020-10-20 19:06 | NUR ---
RECEIVED CHANGE OF SHIFT REPORT FROM DAY SHIFT NURSE.
--- NOTE | 2020-10-20 19:15 | NUR ---
PT GIVEN PRN NORCO TWICE THIS SHIFT. NO COMPLAINTS OTHER THAN FIRMNESS ABOVE PUBIS. STATES IT IS NOT NORMAL FOR HIM BUT DOES NOT BOTHER HIM. OBED STATED THERES NO NEED FOR FURTHER WORK UP AT THIS TIME.
--- NOTE | 2020-10-20 20:00 | NUR ---
HAS REPORTED RIGHT SIDED WEAKNESS PER PATIENT, HAS RIGHT HAND CONTRACTURE. DENIES CHEST PAIN/SOA/NAUSEA AT THIS TIME. BED ALARM WHEN IN BED.
--- NOTE | 2020-10-20 20:03 | NUR ---
PATIENT EATING LATE SUPPER WITH VISITOR AT THIS TIME.
[2020-10-21 05:49] VITALS: BP 94/62; PULSE 72; TEMP 98.1
--- NOTE | 2020-10-21 07:20 | NUR ---
CHANGE OF SHIFT REPORT GIVEN TO DAY SHIFT NURSEANJELICA RN
--- NOTE | 2020-10-21 10:20 | NUR ---
PT ASSISTED TO STAND AND PEE AT BEDSIDE IN URINAL. PT C/O PAIN IN HIP AND REQUESTED PRN NORCO FOR PAIN. ASSISTED WITH CLOTHING AND BACK TO BED.
[2020-10-21] MEDS ORDERED: NORCO 325 MG-7.1 TAB PO (11:44)
[2020-10-21] MEDS ORDERED: FENTANYL 12MCG TD (11:45)
--- NOTE | 2020-10-21 12:01 | NUR ---
The patient is to discharge back home with his today, 10/21, with home health services for group home/PT/OT from [facility]. ESTHELA attempted to contact and notify Merna at [facility]. ESTHELA left her a voicemail and faxed her the d/c orders. No additional needs at this time.
--- NOTE | 2020-10-21 13:43 | NUR ---
ESTHELA faxed the patient's d/c summary to his insurance, [employer].
--- NOTE | 2020-10-21 14:02 | NUR ---
Initial visit; Patient thanked Apartment Hotel Manager for looking in on him and offering empathy and offering God's blessings. Patient was receptive to being placed on Apartment Hotel Manager's prayer list. Apartment Hotel Manager will follow up.
--- NOTE | 2020-10-21 15:47 | NUR ---
PT HEALTH SUMMARY, DISCHARGE SUMMARY, AND HOME MEDS PRINTED AND REVIEWED WITH PT AND MK. STRESSED IMPORTANCE OF FU APPTS. REVIEWED MEDS, ESCRIPTS SENT TO [facility] FOR FENTANYL PATCH, ZOLOFT, AND NORCO AND PROTONIX CALLED IN. BELONGINGS GATHERED BY SANDER AND POLISHER INCLUDING HEARING AIDS AND DENTURES. PT TRANSPORTED VIA WC BY SANDER AND POLISHER AND RN AND SEATBELTED FOR RIDE HOME. PT AND DENIED QUESTIONS.
--- NOTE | 2020-10-21 17:08 | NUR ---
Discharge QIM scores were reviewed by the team. Code of 5 for eating was determined by team discussion to be the most usual performance for this patient during the assessment period. Code of 6 for oral hygiene was determined by team discussion to be the most usual performance for this patient during the assessment period. Code of 4 for toilet hygiene was determined by team discussion to be the most usual performance for this patient during the assessment period. Code of 4 for toilet transfer was determined by team discussion to be the most usual performance for this patient during the assessment period. Code of 5 for upper body dressing was determined by team discussion to be the most usual performance for this patient during the assessment period. Code of 4 for lower body dressing was determined by team discussion to be the most usual performance for this patient during the assessment period. Code of 3 for putting on/taking off footwear was determined by team discussion to be the most usual performance for this patient during the assessment period.
== END 2020-10-21 15:45 | disposition home health service (06) | DRG 559 ==
LOC: SURG 17:36 → PEDS 17:36
PROVIDERS: Nurse Practitioner Family; Physician Assistant; ADMIT Internal Medicine
DX: S72.141D Displaced intertrochanteric fracture of right femur, subsequent encounter for closed fracture with routine healing (principal); U07.1 COVID-19; J96.01 Acute respiratory failure with hypoxia; E43 Unspecified severe protein-calorie malnutrition; J44.9 Chronic obstructive pulmonary disease, unspecified; D49.6 Neoplasm of unspecified behavior of brain; F32.9 Major depressive disorder, single episode, unspecified; E03.9 Hypothyroidism, unspecified; Z20.822 Contact with and (suspected) exposure to COVID-19; Z66 Do not resuscitate; I73.9 Peripheral vascular disease, unspecified; T66.XXXD Radiation sickness, unspecified, subsequent encounter; R47.1 Dysarthria and anarthria; R29.810 Facial weakness; R52 Pain, unspecified; R19.00 Intra-abdominal and pelvic swelling, mass and lump, unspecified site; I89.0 Lymphedema, not elsewhere classified; W18.30XD Fall on same level, unspecified, subsequent encounter; Z79.01 Long term (current) use of anticoagulants; Z79.891 Long term (current) use of opiate analgesic; Z85.118 Personal history of other malignant neoplasm of bronchus and lung; Z86.711 Personal history of pulmonary embolism; Z87.891 Personal history of nicotine dependence
CPT/HCPCS: 99223-AI; 99231-AI; 99232-AI; 99239

== ENCOUNTER 2021-03-31 15:09 | Emergency (ER) | payer BC ==
[~2021-03-31] VITALS: Ht 167.6 cm; Wt 56.8 kg
[~2021-03-31 15:09] MED LIST changes: +DECADRON6 MG PO; +FENTANYL 12MCG TD; +RT Anoro Ellipta IH; +ZOLOFT 100MG100 MG PO
[2021-03-31 15:40] VITALS: TEMP 97.7
[2021-03-31 16:15] LABS: BASO # 0.1 (0.0-0.2); BASO % 0.8 % (0.0-2.0); EOS # 0.1 (0.0-0.7); EOS % 0.8 % (0-4.0); GRAN # 6.1 (1.4-6.5); GRAN % 66.8 % (42.2-75.2); HEMOGLOBIN 14.2 g/dl (13.5-18.0); LYMPH # 2.3 (1.2-3.4); LYMPH % 24.8 % (20.0-51.0); MEAN CELL VOLUME 91 fl (80.0-100.0); MEAN CORPUSCULAR HEMOGLOBIN 30 pg (27.0-31.0); MEAN CORPUSCULAR HGB CONC 33 g/dl (33.0-37.0); MEAN PLATELET VOLUME 8.7 fl (7.4-10.4); MONO # 0.6 (0.1-0.6); MONO % 6.4 % (1.7-9.3); PLATELET COUNT 420 K/mm3 (130-400); RED BLOOD COUNT 4.75 M/mm3 (4.20-5.60); REDCELL DISTRIBUTION WIDTH-CV 14.9 % (11.5-14.5)
[2021-03-31 16:29] LABS: ALBUMIN 4.5 gm/dL (3.5-5.0); BILIRUBIN,TOTAL 0.7 mg/dL (0.0-1.0); CALCIUM 9.5 mg/dL (8.4-10.2); CREATININE, serum 0.72 (0.66-1.25); POTASSIUM 4.5 mmol/L (3.4-5.0); TOTAL PROTEIN 7.6 gm/dL (6.4-8.2)
[2021-03-31] MEDS ORDERED: MIRALAX238G PO (17:27)
[2021-03-31 17:35] VITALS: BP 112/79; PULSE 70
== END 2021-03-31 17:36 | disposition home or self-care (01) ==
LOC: COL.ER 15:09
PROVIDERS: Nurse Practitioner Primary Care
DX: K59.00 Constipation, unspecified (principal); J44.9 Chronic obstructive pulmonary disease, unspecified; E03.9 Hypothyroidism, unspecified; Z79.890 Hormone replacement therapy; Z79.899 Other long term (current) drug therapy
CPT/HCPCS: J2270; J7030